=== PATIENT | female | born 1945 | race Caucasian/White ===

== ENCOUNTER 2025-07-22 16:35 | Outpatient (REF) | payer MEDICARE, SELFPAY ==
--- NOTE | ~2025-07-22 | CT_ITS ---
CLINICAL HISTORY: ABNORMAL CHEST CT CT chest without contrast Comparison: None provided Findings: There is mild coronary artery disease. The visualized thyroid and mediastinum are unremarkable. There is severe bullous emphysema in the upper lobes in particular. Scarring is seen at the lung apices. There is a 1.1 cm irregularly-shaped perifissural nodule in the left lower lobe best seen on image number 81 of series number 7. The upper abdomen is unremarkable. No acute fractures. IMPRESSION: 1. Irregularly-shaped perifissural nodule measuring 1.1 cm. Though this may represent an enlarged perifissural lymph node,neoplasm is not entirely excluded. Please correlate with PET imaging. 2. Severe bullous emphysema in the upper lobes. This document has been electronically signed by: Robert Serrano MD on 07/24/2025 12:35:01
--- OUTSIDE RECORDS SUMMARY | 2025-07-22 18:44 | XMS_ITS | Clinical Summary ---
Author Organization [employer] Address [address] [facility] [address] [place] [address] Care Team Providers Care Mining Manager Name Role Phone Unavailable Primary Care Provider Unavailabl e Immunizations Immunization Administration Dates Next Due Influenza injectable quadrivalent preservative f ree 08/31/2023 Influenza, IIV3, injectable 07/23/2018, 2 Pfizer Covid-19 Vaccine 12+ 08/31/2023 Social History Tobacco Use Types Packs/Day Years Used Date Smoking Tobacco: Never Assessed Comments Unknown Sex and Gender Information Value Date Recorded Sex Assigned at Female 08/31/2023 2:47 PM EDT Legal Sex Female 12:11 PM EDT Gender Identity Female 08/31/2023 2:47 PM EDT Sexual Orientation Straight 08/31/2023 2: 47 PM EDT Plan of Treatment Health Maintenance Due Date Last Done Comments Depression Screening 1945 Lipid Panel 1945 SDOH Screening 1945 Alcohol/Substance Use Screening 1957 Tobacco Screening 1957 Hepatitis C Screening 1963 DTaP/Tdap/Td Vaccines (1 - Tdap) 1964 Pneumococcal Vaccine: 50+ Years (1 of 1 - PCV) 1995 Zoster Vaccines (1 of 2) 1995 RSV Patients and Patients Aged 60 years or older (1 - 1-dose 75+ series) 2020 COVID-19 Vaccine (4 - 2024-2 6 season) 2025 08/31/2023, 02/24/2021, 02/03/2021 Influenza Vaccine (#1) 2025 , 07/23/2018, 08/22/2012 HIB Vaccines Aged Out No longer eligi ble based on patient's age to complete this topic HPV Vaccines Aged Out No longer eligi ble based on patient's age to complete this topic Hepatitis A Vaccines Aged Out No long er eligible based on patient's age to complete this topic Hepatitis B Vaccines Aged Out No long er eligible based on patient's age to complete this topic IPV Vaccines Aged Out No longer eligi ble based on patient's age to complete this topic Meningococcal B Vaccine Aged Out No l onger eligible based on patient's age to complete this topic Meningococcal Vaccine Aged Out No edd letty eligible based on patient's age to complete this topic RSV under 20 months Aged Out No longe r eligible based on patient's age to complete this topic Rotavirus Vaccines Aged Out No longer eligible based on patient's age to complete this topic Insurance [employer] PPO
== END 2025-07-22 16:36 | disposition home or self-care (01) ==
LOC: HO.CT 16:35
PROVIDERS: PCP Internal Medicine; Visit Provider Internal Medicine
DX: R93.89 Abnormal findings on diagnostic imaging of other specified body structures (principal); Z87.891 Personal history of nicotine dependence
CPT/HCPCS: 71250

== ENCOUNTER 2025-08-08 10:23 | Outpatient (AMB) | payer MEDICARE, SELFPAY ==
--- NOTE | 2025-08-08 10:27 | A.OFFVIS_ITS ---
Vital Signs 08/08/25 10:29 Height 5 ft 2.5 in Weight 88 lb 8 oz BMI 15.9 BP 110/64 Blood Pressure Location Rt brachial Position Sitting Pulse 89 Pulse Source Pulse Oximeter Pulse Oximetry (%) 96 Oxygen Delivery Method Room Air Intake Visit Reasons: Abnormal CT scan Allergies No Known Allergies Allergy (Verified 08/08/25 10:31) HPI HPI Abnormal CT scan: Details: Soledad is a pleasant 79-year-old female, former approximately 30 pack-year smoker, quit 15 years ago currently vaping with underlying Parkinson's, hypertension, osteoporosis and anxiety. She was referred by PCP after abnormal CT chest scan which revealed a 1.1 cm irregularly-shaped perifissural nodule in the left lower lobe. She reports being sent for chest CT for prior abnormal chest CT, however unclear where this was performed. She currently denies any respiratory symptoms or prior need for respiratory medications. She denies prior history of asthma/COPD. She denies any pertinent family history. She reports significant smoking history starting in late 50s to 60s continuing until 2009 where she switched to vaping. She continues to vape however states she is currently not vaping nicotine.The patient has a history of significant personal loss, including the of her and two sons, as well as sister and her youngest son currently has cancer, with all this feels she is not ready to quit vaping at this time. [facility] Social History (Updated 08/08/25 @ 10:32 by Amelia Solis CMA) Patient Tobacco Use Status: Former Tobacco user e-Cigarette/Vaping Use: Currently Using Review of Systems Const Denies chills, Denies excessive sweating, Denies fever(s), Denies headache(s) and Denies night sweats Eyes Denies dry eyes, Denies irritation and Denies itchy eyes ENT Reports Normal hearing present, Denies headache(s), Denies nasal congestion, Denies nasal discharge, Denies post nasal drip and Denies sore throat Card Denies chest pain, Denies chest pain at rest, Denies chest pain with activity, Denies claudication, Denies leg edema, Denies dyspnea, Denies dyspnea on exertion, Denies orthopnea and Denies paroxysmal nocturnal dyspnea Resp Denies chest congestion, Denies cough, Denies excessive phlegm production, Denies pain on inspiration, Denies pain with cough, Denies dyspnea, Denies dyspnea on exertion, Denies stridor and Denies wheezing Musc Denies myalgias Neuro Reports Normal hearing present and Denies headache(s) Endo Denies excessive sweating Aevry/Lymph Denies lymphadenopathy Aller/Immun Denies itchy eyes, Denies seasonal rhinorrhea and Denies wheezing Physical Exam Vital Signs: Last Vital Signs Pulse 89 08/08/25 10:29 BP 110/64 08/08/25 10:29 Pulse Ox 96 08/08/25 10:29 Oxygen Delivery Method Room Air 08/08/25 10:29 BMI result Body Mass Index 15.9 Const General: cooperative, comfortable, no acute distress, well developed and alert Nutritional Appearance: thin Orientation/consciousness: patient oriented x3 Limitations: ambulation with cane HEENT Head: Yes normal to inspection, Yes normocephalic and Yes atraumatic Ears: hearing grossly normal bilaterally and external ears normal Eyes General: appearance normal, both eyes and all related structures Eyelids: Yes eyelids normal Sclerae: sclerae normal EOM: EOMs intact bilaterally Neck Neck: Yes normal visual inspection and Yes no lymphadenopathy Lymphatic: no lymphadenopathy noted Chest Chest palpation & inspection: normal inspection of the chest Resp Effort & Inspection: normal respiratory effort, able to speak in complete sentences, no audible wheezes, no cough, no stridor, not tachypneic, no tripod positioning, no use of accessory muscles and prolonged expiratory phase Auscultation: diminished lung sounds Cardio Jugular venous distension: no JVD Rate: regular rate Rhythm: regular rhythm Skin Other: warm, dry General skin exam: no rashes or lesions noted Neuro General: patient oriented x3 Cranial nerves: Yes Normal hearing present Cognition (Neuro): normal cognition Extrem General: Yes normal to inspection, Yes capillary refill normal, Yes no clubbing, cyanosis or edema and Yes no pedal edema Psych Appearance: grossly normal and well kempt Speech and movement: Normal speech and movement present and Clear speech present Affect: normal affect Attitude: cooperative Thought process: Normal thought process present Thought content: Normal thought content present Insight: Good insight present (Psych) Judgement: Good judgement present (Psych) Results Reviewed Results Reviewed: [address] [address] [address] Scan Report Signed Patient: Soledad Bradley MR#: [id number] : 1945 Acct:[id number] Age/Sex: 79 / F ADM Date: 07/22/25 Loc: HO.CT Attending Dr: Susi Oliver DO Ordering Physician: Susi Florez DO Date of Service: 07/22/25 Procedure(s): CT chest wo IV con Accession Number(s): [id number] cc: Susi Florez DO~ Report Number: [id number]: Total DLP = 63.00 mGy-cm Reason for Exam: ABNORMAL CHEST CT CLINICAL HISTORY: ABNORMAL CHEST CT CT chest without contrast Comparison: None provided Findings: There is mild coronary artery disease. The visualized thyroid and mediastinum are unremarkable. There is severe bullous emphysema in the upper lobes in particular. Scarring is seen at the lung apices. There is a 1.1 cm irregularly-shaped perifissural nodule in the left lower lobe best seen on image number 81 of series number 7. The upper abdomen is unremarkable. No acute fractures. IMPRESSION: 1. Irregularly-shaped perifissural nodule measuring 1.1 cm. Though this may represent an enlarged perifissural lymph node,neoplasm is not entirely excluded. Please correlate with PET imaging. 2. Severe bullous emphysema in the upper lobes. This document has been electronically signed by: Robert Serrano MD on 07/24/2025 12:35:01 Dictated By: Robert Serrano MD Signed By: <Electronically signed by Robert Serrano MD in OV> 07/24/25 1236 DD/ 1235 TD/TT: 07/24/25 1235 Electrical Project Manager: Assessment & Plan Assessment & Plan (1) Pulmonary nodule: Code(s): R91.1 - Solitary pulmonary nodule Category: Medical (2) Emphysema of lung: Code(s): J43.9 - Emphysema, unspecified Category: Medical Plan Soledad presents for pulmonary evaluation after abnormal chest CT revealed a 1.1 cm irregularly-shaped perifissural nodule in the left lower lobe. She reportedly underwent CT to monitor pulmonary nodule however no imaging in the last 5 years through [facility]. She has had testing through [facility] however denies chest CT. Will reach out to [facility] to obtain any prior chest imaging. In the mean time, discussed the nature of pulmonary nodules including infectious, inflammatory and malignant etiologies. Will repeat in 3 months to assess stability. If there is progression of nodule, discussed the significant risk of biopsy given severity of emphysematous changes. Will send for PFT to assess severity of obstructive defect, likely with COPD given smoking history and significant emphysematous changes on chest CT. All questions were answered and patient is in agreement of plan. Will follow-up to review results or sooner if needed. Orders: Orders CT chest wo IV con 10 Weeks R91.1 - Solitary pulmonary nodule PFT pulmonary function test Today J43.9 - Emphysema, unspecified Coding Level of Care Code New Pt Level 4 (11499) Diagnoses Pulmonary nodule R91.1 Emphysema of lung J43.9
[2025-08-08 10:29] VITALS: BP 110/64; PULSE 89; O2SAT 96; BMI 15.9
== END 2025-08-08 11:10 | disposition home or self-care (01) ==
LOC: HO.HPSW 10:24
PROVIDERS: PCP Internal Medicine; Referring Provider Internal Medicine; Visit Provider Nurse Practitioner Family
DX: R91.1 Solitary pulmonary nodule (principal); J43.9 Emphysema, unspecified
CPT/HCPCS: 99204

== ENCOUNTER → 2025-08-08 10:23 | Outpatient (BNVA) | payer MEDICARE, SELFPAY | PROVIDERS: PCP Internal Medicine; Referring Provider Internal Medicine; Visit Provider Nurse Practitioner Family | DX: R91.1 Solitary pulmonary nodule (principal); J43.9 Emphysema, unspecified; Z87.891 Personal history of nicotine dependence | CPT/HCPCS: 99202 ==

== ENCOUNTER 2025-09-07 12:05 | Emergency (ER) | payer MEDICARE, SELFPAY ==
--- NOTE | ~2025-09-07 | CT_ITS ---
CLINICAL HISTORY: fall. fracture? Exam: Unenhanced CT chest with multiplanar reformats. Comparison: None. Findings: Lungs reveal diffuse significant centrilobular emphysematous disease. Biapical scarring is present. A poorly defined right upper lobe nodular density measuring 12 x 5 mm transverse and AP dimension (30; 38) is noted. A 1 cm left fissural nodule is noted (30; 79). No other definable nodules. No focal consolidation. Airways are patent. No pneumothorax. No mediastinal or hilar masses or adenopathy. No pleural or pericardial effusions. Images below the diaphragms reveal no acute abnormalities. Osseous structures reveal no acute fractures or traumatic malalignment. Impression: 1. No acute traumatic sequela to the chest. 2. Significant centrilobular emphysema. 3. Pulmonary and fissural nodular densities as described above. Based on size criteria, consider three-month follow-up chest CT, or comparison with prior imaging if available. This document has been electronically signed by: Raleigh Lopez MD on 09/07/2025 14:31:18
--- NOTE | ~2025-09-07 | XR_ITS ---
EXAMINATION: XR SHOULDER, RIGHT CLINICAL INFORMATION: fall COMPARISON: Fall TECHNIQUE: Four views of the right shoulder. FINDINGS: Study is assigned to de for dictation on 09/08/2025 at 8:07 AM. Bone mineralization appears slightly decreased. No visible acute fracture or dislocation. Mild acromioclavicular arthritis. Glenohumeral joint space appears relatively maintained. There are sclerotic foci in the proximal humeral metadiaphysis, extending over a length of approximately 7.4 cm craniocaudal, 2.6 cm transverse. Margins are slightly lobulated. No periosteal reaction. No cortical breakthrough. No lytic foci. No pathological fracture seen. Clavicle is intact. No abnormal soft tissue calcification. XR/XR shoulder RT min 2V IMPRESSION: *No radiographic evidence of acute fracture or dislocation. *Mild acromioclavicular arthritis * Lesion in the proximal humeral metadiaphysis measuring 7.4 cm craniocaudal. No lytic foci. No cortical breakthrough. No periosteal reaction or pathological fracture. Differential considerations include primary bone lesion, metastatic disease This could represent a chondroid lesion among other etiologies. Recommend correlation with prior imaging. Clinically correlate. Recommend further workup with bone scan, PET/CT as clinically indicated. In addition, recommend ongoing clinical and radiographic follow-up. [place] text message was sent to Armaan Pérez at 9:07 AM, September 08, 2025 Electronically signed by: Jose Ortez MD 09/08/2025 09:09 AM [facility] [place]
--- NOTE | ~2025-09-07 | CT_ITS ---
CLINICAL HISTORY: Fall Exam: Nonenhanced CT abdomen and pelvis with multiplanar reformats. Comparison: None. Findings: CT abdomen: Lung bases reveal centrilobular emphysematous changes. Liver is free of gross focal lesions and ductal dilatation. Gallbladder is absent. Spleen appears unremarkable. Pancreas and adrenal glands appear unremarkable. Kidneys appear unremarkable. No free intraperitoneal fluid or retroperitoneal masses or adenopathy. Abdominal aorta is normal caliber with moderate calcific athero sclerosis. Bowel loops reveal no abnormal wall thickening or distention. Colonic diverticulosis is present, without CT evidence of diverticulitis. The appendix appears unremarkable. CT pelvis: Uterus reveals small calcified fibroids. Urinary bladder is free of gross filling defects. No pelvic masses, fluid or adenopathy. Osseous structures reveal fractures of the anterior aspect of the superior and inferior pubic rami (35; 571 -607. No other definable fractures or traumatic malalignment. Diffuse lumbar degenerative changes are present. Mild central compression deformity at L4 (39; 52) appears remote, with no definable fracture lines or paravertebral stranding. Impression: 1. Fractures of the left superior and inferior pubic rami. 2. No other acute traumatic sequela to the abdomen or pelvis. This document has been electronically signed by: Raleigh Lopez MD on 09/07/2025 14:26:10
--- NOTE | ~2025-09-07 | XR_ITS ---
CLINICAL HISTORY: fall 2 views each hip with AP pelvis Comparison: Same-day CT pelvis Findings: Fracture of the left superior pubic ramus is re-identified. Fracture of the inferior pubic ramus seen on CT exam is not well delineated on this exam. No other fracture or dislocation. No significant hip arthritic change. Lower lumbar degenerative changes are present. No radiopaque foreign body. Impression: 1. Fracture of the left superior pubic ramus. Fracture of the left inferior pubic ramus seen on same day CT is not well delineated on this exam. No other fractures. This document has been electronically signed by: Raleigh Lopez MD on 09/07/2025 14:26:35
--- NOTE | ~2025-09-07 | CT_ITS ---
CLINICAL HISTORY: Fall CT head without contrast Comparison: None Findings: No intracranial mass, midline shift, hydrocephalus, or acute hemorrhage. No CT evidence of acute ischemia. Visualized paranasal sinuses and mastoid air cells normal. Orbits unremarkable. No skull fracture Impression: 1. No acute intracranial abnormalities. This document has been electronically signed by: Raleigh Lopez MD on 09/07/2025 14:21:27
--- NOTE | ~2025-09-07 | CT_ITS ---
CLINICAL HISTORY: Fall CT cervical spine without contrast Comparison: None Findings: Normal limited view of the intracranial contents. Soft tissues of the neck are normal. Lung apices reveal biapical scarring.. Normal vertebral body alignment. No fractures or dislocations. Diffuse cervical degenerative changes are present. 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 Impression: 1. No cervical vertebral fracture or traumatic malalignment. This document has been electronically signed by: Raleigh Lopez MD on 09/07/2025 14:26:47
[2025-09-07 12:15] VITALS: BP 158/76; PULSE 89; RESP 18; TEMP 36.6; O2SAT 98; BMI 16.1
--- NOTE | 2025-09-07 12:19 | ED.GENADULT ---
HPI - General Adult General Chief complaint: Fall Stated complaint: L Side Pain S/P Fall 2 Days Ago Time Seen by Provider: 09/07/25 13:15 Source: patient and family (Patient's son Abel) Mode of arrival: ambulatory Limitations: no limitations History of Present Illness ED Provider: HPI narrative: 79-year-old woman fell 3 days ago, since then has had very difficult time ambulating to the bathroom without assistance, her son states that she went from very functional to the early functional, she is complaining of left hip pain, right shoulder pain, no headaches no visual changes, not on blood thinners, patient has a history of Parkinson's. Patient states that she turned abruptly and this is when she fell on the cement steps. Related Data Home Medications ?Medication ?Instructions ?Recorded ?Confirmed amlodipine 5 mg tablet 5 mg PO DAILY 08/08/25 atorvastatin 20 mg tablet (Lipitor) 20 mg PO DAILY 08/08/25 cholecalciferol (vitamin D3) 25 25 mcg PO DAILY 08/08/25 mcg (1,000 unit) capsule rasagiline 1 mg tablet 1 mg PO DAILY 08/08/25 rotigotine 4 mg/24 hour 4 mg transdermal DAILY 08/08/25 transdermal 24 hour patch (Neupro) Previous Rx's ?Medication ?Instructions ?Recorded oxycodone 5 mg tablet 2.5 mg (1/2 x 5 mg) PO Q6H PRN 09/07/25 pain #7 tabs Allergies Allergy/AdvReac Type Severity Reaction Status Date / Time strawberry Allergy Unknown Verified 09/07/25 12:18 Review of Systems Constitutional: Constitutional: Reports as per [facility] Social History Social History (Updated 08/08/25 @ 10:32 by Amelia Solis [facility]) Patient Tobacco Use Status: Former Tobacco user Smoked in Last 30 Days: No e-Cigarette/Vaping Use: Currently Using Use of substances other than those prescribed or required for medical reasons: No Advance Directives: Yes Advance Directives Information Provided: No Advance Directives on File: No Do you have a plan to hurt others: No Plan Physical Exam ED Exam Exam: General: ?Elderly woman, has parkinsonian tremor ? ?no facial injury, pupils 2 mm reactive bilaterally, no blood in the airway ? Neck: Supple, no LAD ? ?CV: RRR, no obvious murmurs appreciated ? ?Resp: ?No wheezing rales rhonchi no stridor moving air well ? Abd: ?Holding her hip in internal rotation, tender range of motion, pelvis is stable, distal pulses intact ? Skin: Warm, dry, intact, no bruising ? ?Neuro: ?Alert and oriented x3, cranial nerves 2-12 intact Vital Signs: Vital Signs - 24 hr 09/07/25 12:15 09/07/25 13:50 09/07/25 13:58 Temperature 98 F 98.1 F Pulse Rate 89 89 Respiratory Rate 18 18 Blood Pressure 158/76 H 153/75 H Pulse Oximetry 98 87 L 94 Oxygen Delivery Method Room Air Room Air Nasal Cannula Oxygen Flow Rate 2 09/07/25 15:31 09/07/25 15:31 Temperature 98.1 F Pulse Rate 89 Respiratory Rate 18 Blood Pressure 153/75 H Pulse Oximetry 92 92 Oxygen Delivery Method Room Air Room Air Oxygen Flow Rate BMI result Body Mass Index 16.1 Course Course Course Narrative: RME: 79 year female history of Parkinson's disease presents to ED for fall 2 days ago. Patient states she has Parkinson's was walking she tripped over her feet and fell onto her right side. Patient is complaining of left hip and right shoulder pain. Patient has difficulty walking since fall. Patient denies being on any blood thinners. Imaging ordered. Reevaluation(s) Reevaluation #1: OSCAR Laura 09/08/25 0324 I received a call from Radiology regarding patient's shoulder x-ray from yesterday. Dr. Ortez was asked to review xray - informs me of: Lesion in the proximal humeral metadiaphysis measuring 7.4 cm craniocaudal. No lytic foci. No cortical breakthrough. No periosteal reaction or pathological fracture. Differential considerations include primary bone lesion, metastatic disease This could represent a chondroid lesion among other etiologies. Recommend correlation with prior imaging. Clinically correlate. Recommend further workup with bone scan, PET/CT as clinically indicated. In addition, recommend ongoing clinical and radiographic follow-up. I called patient at her home phone number [phone], informed her of these results. She was unaware of any bone lesion. I informed her that this needs to be followed up outpatient as cancer cannot be ruled out. She verbalizes understanding and states that she will be contacting her PCP (Vielka Loyd) today for follow up. Her PCP has also been sent visit note/imaging. informed her to return to the ED for any new/ or worsening symptoms. Medications Administered Discontinued Medications Generic Name Dose Route Start Last Admin Trade Name Donna PRN Reason Stop Dose Admin Acetaminophen 1,000 mg in 100 mls @ 400 mls/hr 09/07/25 13:54 09/07/25 14:58 Ofirmev IV 09/07/25 14:08 Infused ONCE ONE Infusion Medical Decision Making Medical Decision Making [facility] Narrative: 1:58 PM 09/07/2025 (Dr. Parvez Barraza): Patient presenting after a fall, I spoke to her son regarding patient is ambulatory status and discussed whether patient has a fracture and can be discharged or if she does not have a fracture given Parkinson's and pain, she states states has inability to take any narcotic pain medications I will go ahead and give IV Tylenol, it sounds like there is another son who is at home to help with mom's care 247 and they would not be interested in rehab if there was no fracture, we will obtain imaging of the head and neck as well as CT pelvis, the x-rays bilateral obvious fracture however I am still concerned for occult subcapital fracture that does not able to be seen on x-rays we will obtain imaging for that, for now we will hold off any blood work urinalysis, this was a nonsyncopal fall. 2:37 PM 09/07/2025 (Dr. Parvez Barraza): Patient has inferior and superior left-sided pubic rami fracture, reached out to ortho to see if they recommend follow up, this will be weight-bearing as tolerated with a walker typically we will discuss with the patient 2:39 PM 09/07/2025 (Dr. Parvez Barraza): according to [facility] protocol is NWB x 3 months with ortho follow up 3:07 PM 09/07/2025 (Dr. Parvez Barraza): I spoke to patient and her son regarding above recommendations, patient states she would like to go home, she will be able to use both a walker and her crutches to stay nonweightbearing and to follow up with Orthopedics, she also stated she will take a few pain medications for home, they were not interested in rehab. Differential Diagnosis Differential Diagnoses: The differential diagnosis associated with the presentation includes (Head injury, neck injury, syncope, shoulder injury dislocation) Admission/Observation Consideration of admission/observation: Escalation of care including admission/observation considered Consult Healthcare Provider Management of the patient was discussed with: [employer]iv[employer] Trader (Orthopaedic service) Independent Interpretation I performed an independent interpretation of an: CT Scan (1. Fracture of the left superior pubic ramus. Fracture of the left inferior pubic ramus seen on same day CT is not well delineated on this exam. No other fractures.) Radiology Impression Discussion of test interpretation with radiology: I have reviewed the radiologist's reading. Prescription Management I considered prescription management with: Pain Medication Discharge Plan Discharge Clinical Impression: Fracture of inferior pubic ramus, Fracture of superior pubic ramus Patient Disposition: Home, Self-Care Instructions: Pelvic Fracture (ED) Additional Instructions: I would like you to take Tylenol 975 mg every 6 hours around the clock for the next few days to help with the pain, oxycodone you can cut in half and use half a pill every 6 hours needed for pain, stay well hydrated, as discussed you have pelvic fractures on the left side, Orthopedic Surgeons we will need to see you in the next few weeks he can call make an a follow up appointment in the next 2-3 weeks, in the meantime their recommendation is for you not to bear weight on the left side, whether use crutches or walker please adhere to this recommendation. Should you develop any issues with frequent falls or safety or any other concerns do not hesitate to come back to the ER for evaluation. Prescriptions: New oxycodone 5 mg tablet 2.5 mg PO Q6H PRN (Reason: pain) Qty: 7 0RF Rx Instructions: Partial Fill upon patient request. No Action atorvastatin [Lipitor] 20 mg tablet 20 mg PO DAILY amlodipine 5 mg tablet 5 mg PO DAILY cholecalciferol (vitamin D3) 25 mcg (1,000 unit) capsule 25 mcg PO DAILY rasagiline 1 mg tablet 1 mg PO DAILY Neupro 4 mg/24 hour patch 24 hour 4 mg transdermal DAILY Referrals: [facility] [Provider Group, Orthopedics] - 2 weeks Clinical Impression: Fracture of inferior pubic ramus; Fracture of superior pubic ramus Susi Florez DO [Primary Care Provider, Osteopathic Medicine] - 2 weeks Interventions: ED Discharge Assessment Last Done: 09/07/25 15:31 Discharge Date/Time: 09/07/25 15:33 Print Language: Kosovan
--- OUTSIDE RECORDS SUMMARY | 2025-09-07 13:21 | XMS_ITS | Clinical Summary ---
Author Organization [employer] Address [address] [facility] [address] [facility] [address] [place] [address] Care Team Providers Care Front Office Representative Name Role Phone Unavailable Primary Care Provider [...]
[2025-09-07 13:50] VITALS: O2SAT 87
[2025-09-07 13:58] VITALS: BP 153/75; PULSE 89; RESP 18; TEMP 36.7; O2SAT 94
--- NOTE | 2025-09-07 14:11 | PC.NURSE ---
Pt desat on RA to mid 80s. Placed on 2L O2 with good effect, maintaining O2 sat >92%. No respiratory distress noted, respirations even and unlabored. Pt states does not wear O2 at home. 22g IV placed Left wrist- IV Tylenol infusing per DEC. Call stevenson within reach, all needs met at this time.
[2025-09-07 15:31] VITALS: BP 153/75; PULSE 89; RESP 18; TEMP 36.7; O2SAT 92
--- NOTE | 2025-09-07 15:33 | PC.NURSE ---
Pt trialed off O2- maintained O2 sat >92% on RA. Per LE stokes to d/c pt home
== END 2025-09-07 15:33 | disposition home or self-care (01) ==
PROVIDERS: Emergency Provider Emergency Medicine; PCP Internal Medicine
DX: S32.512A Fracture of superior rim of left pubis, initial encounter for closed fracture (principal); S32.592A Other specified fracture of left pubis, initial encounter for closed fracture; M54.2 Cervicalgia; M25.552 Pain in left hip; M25.551 Pain in right hip; R51.9 Headache, unspecified; X58.XXXA Exposure to other specified factors, initial encounter; Y93.9 Activity, unspecified; Y92.9 Unspecified place or not applicable; Y99.8 Other external cause status; Z79.899 Other long term (current) drug therapy
CPT/HCPCS: 70450; 71250; 72125; 73030; 73521; 74176; 96365; 99284; 99285; J0131

== ENCOUNTER → 2025-09-07 12:18 | Outpatient (BNV) | payer MEDICARE, SELFPAY | PROVIDERS: Emergency Provider Emergency Medicine; PCP Internal Medicine; Visit Provider Radiology Diagnostic Radiology | DX: M25.552 Pain in left hip (principal); R26.2 Difficulty in walking, not elsewhere classified; Z91.81 History of falling | CPT/HCPCS: 70450; 71250; 72125; 73030; 73521; 74176 ==

== ENCOUNTER 2025-09-08 17:33 | Emergency (ER) | payer MEDICARE, OTHER, SELFPAY ==
--- NOTE | ~2025-09-08 | CT_ITS ---
CLINICAL HISTORY: hypoxia CT angiography chest with contrast. 3D Postprocessing. Comparison: CT/REG/SR - CT CHEST WO IV CON - 09/07/25 13:20 EST Findings: The heart is normal size. RV/LV ratio is normal. The thoracic aorta is normal caliber. No acute pulmonary embolus. The visualized thyroid and mediastinum are unremarkable. Severe centrilobular emphysema with apical bullous change. Again seen is a 12 x 5 mm right upper lobe nodular density, series 7, image 36 that appears to be associated with an area of scarring. Group of fissural densities adjacent to the superior segment of the left lower lobe, along the major fissure again seen. These are platelike. The upper abdomen is unremarkable. The bones are intact. No lytic or blastic bone lesions. IMPRESSION: 1. No pulmonary embolus. 2. Severe centrilobular emphysema with apical bullous changes. 3. Again seen nodule in the right upper lobe and fissural densities in the left lung, attention on three-month follow-up imaging recommended. This document has been electronically signed by: Jose Flores MD on 09/11/2025 19:10:16
[2025-09-08 17:50] VITALS: BP 157/90; PULSE 88; RESP 16; TEMP 36.6; O2SAT 89; BMI 16.1
--- NOTE | 2025-09-08 17:50 | ED.GENADULT ---
HPI - General Adult General Chief complaint: Extremity Injury, Lower Stated complaint: fractured pelvis, left here yesterday Time Seen by Provider: 09/08/25 19:55 Source: patient Mode of arrival: wheelchair Limitations: no limitations History of Present Illness ED Provider: Dr. Madie Moya HPI narrative: Patient comes to the emergency room via private vehicle, patient was read by her son. Patient was in here yesterday for a fall. She was diagnosed with an acute fracture of the left superior pubic ramus. Patient states that yesterday although she was in pain, she thought she could be okay at home, states that she has a younger son that could take care of her. However, patient states that her son was unable to provide enough help although he tried. Patient states that she is unable to get up by herself. Related Data Home Medications ?Medication ?Instructions ?Recorded ?Confirmed amlodipine 5 mg tablet 5 mg PO DAILY 08/08/25 09/09/25 atorvastatin 20 mg tablet (Lipitor) 20 mg PO DAILY 08/08/25 09/09/25 cholecalciferol (vitamin D3) 25 25 mcg PO DAILY 08/08/25 09/09/25 mcg (1,000 unit) capsule rasagiline 1 mg tablet 1 mg PO DAILY 08/08/25 09/09/25 amantadine HCl 100 mg capsule 100 mg PO DAILY 09/09/25 09/09/25 rotigotine 3 mg/24 hour 1 patch topical DAILY 09/09/25 09/09/25 transdermal 24 hour patch (Neupro) Previous Rx's ?Medication ?Instructions ?Recorded oxycodone 5 mg tablet 2.5 mg (1/2 x 5 mg) PO Q6H PRN 09/07/25 pain #7 tabs cefuroxime axetil 250 mg tablet 250 mg PO BID #10 tabs 09/12/25 Allergies Allergy/AdvReac Type Severity Reaction Status Date / Time strawberry Allergy Unknown Verified 09/08/25 17:51 Review of Systems Review of Systems: Constitutional : No Weight loss, No Fever, No Chills, No Night Sweats, No Fatigue, No Malaise ENT/Mouth : No Hearing loss, No Ear Pain, No Nasal Congestion, No Sinus Pain, No Hoarseness, No sore throat, No Rhinorrhea, No Swallowing Difficulty Eyes: No Eye Pain, No Swelling, No Redness, No Foreign Body, No Discharge, No Vision Changes Cardiovascular : No Chest Pain, No SOB, No Dyspnea on Exertion, No Orthopnea, No Edema, No Palpitations Respiratory : No Cough, No Sputum, No Wheezing, No Smoke Exposure, No Dyspnea Gastrointestinal : No Nausea, No Vomiting, No Diarrhea, No Constipation, No abdominal Pain, No Hematochezia, No Melena Genitourinary : no irregular bleeding, No Dysuria, No Urinary Frequency, No Hematuria, No Urinary Incontinence, No Urgency, No Flank Pain, No Urinary Flow Changes, No Hesitancy Musculoskeletal : Complaining of left hip pain, No Myalgias, No Joint Swelling Skin : No Skin Lesions, No rash Neuro : No Weakness, No Numbness, No Paresthesias, No Loss of Consciousness, No Dizziness, No Headache Psych : No Anxiety/Panic, No Depression, No SI/HI/AH/VH, No Social Issues, Heme/Lymph: No Bruising, No Bleeding,No Lymphadenopathy Endocrine : No Polyuria, No Polydipsia, No Temperature Intolerance [facility] Past Medical History Medical History (Updated 09/12/25 @ 12:57 by Caryn Gordon PA-C) Hypertension Pulmonary nodule Emphysema of lung Social History Social History (Updated 08/08/25 @ 10:32 by Amelia Solis CMA) Patient Tobacco Use Status: Former Tobacco user e-Cigarette/Vaping Use: Currently Using Advance Directives Date on File: 09/09/25 Physical Exam ED Exam Exam: Appearance: Alert. Oriented X3. No acute distress. Eyes: Pupils equal, round and reactive to light. ENT: Pharynx normal. Neck: Normal inspection. Neck supple. No lymph nodes noted. No crepitus CVS: Normal heart rate and rhythm. Pulses normal. Normal S1 and S2 Respiratory: No respiratory distress. Breath sounds normal. No Wheezing. No rales Abdomen: Soft and nontender. No rigidity. No distention. Skin: Skin warm and dry. Normal skin color. Normal skin turgor. Extremities: No lower extremity edema. No Lacerations. No Rash, no obvious ecchymosis or hematomas. Patient is unable to flex or extend the left side of the hip due to pain. Neuro: Oriented X 3. No motor deficit. No sensory deficit. Moving all extremities. No slurred speech. CN 2 through 12 grossly intact Psych: calm, cooperative, normal affect Vital Signs: Vital Signs - 24 hr 09/11/25 13:02 09/11/25 14:00 09/11/25 17:33 Temperature 99.6 F Pulse Rate 76 Respiratory Rate 20 Blood Pressure 97/53 L 135/68 Pulse Oximetry 95 98 Oxygen Delivery Method Nasal Cannula Nasal Cannula Oxygen Flow Rate 2 2 09/11/25 19:59 09/11/25 20:24 09/12/25 00:26 Temperature 98.1 F Pulse Rate 76 Respiratory Rate 20 16 Blood Pressure 134/56 L Pulse Oximetry 95 91 L 88 L Oxygen Delivery Method Nasal Cannula Room Air Room Air Oxygen Flow Rate 1 09/12/25 05:08 Temperature 98.2 F Pulse Rate 79 Respiratory Rate 18 Blood Pressure 150/68 H Pulse Oximetry 92 Oxygen Delivery Method Room Air Oxygen Flow Rate BMI result Body Mass Index 16.1 Course Course Course Narrative: Rapid medical examination performed in triage by Opal Beth PA-C: Patient is a 79 year old assigned female at presenting to the emergency department with left pubic fractures. Patient states that she was seen yesterday after falling and was told she had 2 left sided pelvic fractures. Patient states that she thought she could make it at home but the pain is too severe. Detailed physical exam and review of systems are deferred to the chief revenue officer. Patient placed back in the waiting room pending room availability. Reevaluation(s) Reevaluation #1: Time: 08:50 Date: 09/09/25 Provider: OSCAR Levy Patient in physician observation for case management needs. No acute events reported overnight.? No current issues or complaints. VS stable.Pending PT/CM disposition, will continue to monitor Time: 07:34 Date: 09/10/25 Provider: OSCAR Gr Patient in physician observation for case management needs. No acute events reported overnight.?VS stable. Physical therapy evaluated patient and recommended short-term rehab. Patient is pending case management placement. Will continue to monitor. 1004 am 09/10/2025 Provider: OSCAR Monk, Code Status UTD. Molst filled out with patient. 1439: 09/10/25 Provider: OSCAR Monk: CM plans for patient to go to [facility]. Care team requesting increase in her pain medicationsor one time higher dose pain med for tomorrow prior eval tomorrow to better assess her physical capabilities. Will update PRN orders for now. Held 5mg of oxycodone for two days, replaced with 7.5mg same prn schedule Time: 08:12 Date: 09/11/25 Provider: OSCAR Gr Patient in physician observation for case management needs. No acute events reported overnight.? No current issues or complaints. O2 sat soft. Patient is pending PT re-evaluation today secondary to too much pain to participate. Will continue to monitor. > Patient notably hypoxic on room air 86-88% at rest. Labs and imaging reviewed. Plan to obtain CTA for further eval. Currently refusing to wear O2. 5:48 PM 09/11/2025 (Laura Aguilar PA-C): patient now agreeable to wear 2 L nasal cannula. Satting 98% on NC. CTA still pending. We will continue to monitor. ED care transferred to OSCAR Ellis pending CTA and dispo per results Reevaluation #2: Patient received in sign-out at change of shift pending CT angiography due to an episode of hypoxia this afternoon. Her CT angiography does not show any evidence of pulmonary embolism, infiltrate or pleural effusion. CT angiography shows severe emphysema which the patient has likely had for long time. She reports an approximate 40 pack year history of smoking. When I evaluate the patient at bedside, she is not wheezy, she denies any shortness of breath. I had her oxygen turned off and she was 94 percent while sitting up. At rest she drops to about 90 or 89 percent. I suspect this is somewhat chronic for her given that she is well-appearing. She is able to maintain entire conversation while her oxygen saturation is this low. Some degree of hypoxia due to oxycodone use as well. I do not feel that she requires admission at this time. Plan to continue observation Time: 20:16 Reevaluation #3: Time: 08:39 Date: 09/12/25 Provider: Caryn Gordon PA-C Patient in physician observation for case management needs. ON notes rev'd as above. Patient with atelectasis and emphysema. Will order incentive spirometer for her and to go home with. Plan to dispo home today with CAYETANO RAMOS on board. Will continue to monitor. Time: 12:46 Date: 11/14/25 Provider: Caryn Gordon PA-C Physician observation ended at 1245. Patient has been cleared for discharge by the CARE team. Will follow up as an outpatient. Going home with [facility] and [facility]. UTI tx continued- mixed rosalee on culture. Son is bring patient home. Medications Administered Generic Name Dose Route Start Last Admin Trade Name Freq PRN Reason Stop Dose Admin Amlodipine Besylate 5 mg 09/09/25 09:00 09/12/25 08:25 Amlodipine Besylate 5 Mg Tablet PO 5 mg DAILY JACKY Administration Protocol Atorvastatin Calcium 20 mg 09/09/25 09:00 09/12/25 08:25 Atorvastatin Calcium 20 Mg Tablet PO 20 mg DAILY JACKY Administration Cefuroxime Axetil 250 mg 09/09/25 00:15 09/12/25 08:25 Cefuroxime Axetil 250 Mg Tablet PO 250 mg BID JACKY Administration Magnesium Hydroxide 30 ml 09/09/25 09:00 09/12/25 08:24 Milk Of Magnesia 30 Ml Oral.Susp PO Not Given BID JACKY Pt Own (Rasagiline 1 1 mg 09/09/25 10:15 09/12/25 08:23 Mg Tablet) PO 1 mg DAILY JACKY Administration Pt Own (Rotigotine [ 1 patch 09/09/25 10:00 09/12/25 08:23 Neupro] 3 Mg/24 Hour TOPICAL 1 patch Patch 24 Hour) DAILY JACKY Administration Oxycodone HCl 5 mg 09/09/25 03:15 09/10/25 10:49 Oxycodone Hcl Immed Release 5 Mg Tablet PO 5 mg Q6H PRN Administration Pain, Severe (Pain Scale 7-10) Oxycodone HCl 7.5 mg 09/10/25 18:09 09/11/25 20:28 Oxycodone Hcl Immed Release 5 Mg Tablet PO 7.5 mg Q6H PRN Administration severe pain Vitamin D 25 mcg 09/09/25 09:00 09/12/25 08:25 Cholecalciferol (Vitamin D3) 25 Mcg Tablet PO 25 mcg DAILY JACKY Administration Discontinued Medications Generic Name Dose Route Start Last Admin Trade Name Freq PRN Reason Stop Dose Admin Sodium Chloride 500 mls @ 999 mls/hr 09/11/25 15:30 09/11/25 17:06 Ns IV 09/11/25 16:00 Infused .Q31M JACKY Infusion Iohexol 100 ml 09/11/25 18:32 09/11/25 18:33 Iohexol 350 Mg/Ml 100 Ml Infus..Btl IV 09/11/25 18:33 65 ml ONCE ONE Administration Medical Decision Making Medical Decision Making [facility] Narrative: We will obtain basic lab work and urinalysis. Case management consult has been placed. Patient is agreeable to work with physical therapy tomorrow and case management. Interpretation of labs: No significant abnormality in patient's hematology and chemistry. Patient's urinalysis shows moderate amount of leukocyte esterase, WBCs, and bacteria. Borderline UTI positive. However, given that the patient recently had a fall, we will go ahead and treat as a UTI. First dose of cefuroxime given in the ED. Differential Diagnosis Differential Diagnoses: The differential diagnosis associated with the presentation includes (UTI, pubic ramus fracture, hip dislocation, hip fracture, deconditioning) Admission/Observation Consideration of admission/observation: Escalation of care including admission/observation considered (Patient is in the physician observation, physical therapy and case management consult is pending to determine patient's disposition) Lab Data [facility] Lab Attestation statement: I reviewed the patient's lab results. 09/08/25 22:58 09/08/25 22:58 Labs: Lab Results 09/08/25 Range/Units 22:58 WBC 9.9 (4.8-10.8) X10*3/uL RBC 4.31 (4.20-5.50) X10*6/uL Hgb 13.0 (12.0-16.0) g/dl Hct 41.3 (37.0-47.0) % MCV 95.8 (80.0-98.0) fL MCH 30.2 (27.0-33.0) pg MCHC 31.5 (31.0-35.0) g/dl RDW 13.1 (11.0-16.0) % Plt Count 267 (160-400) X10*3/uL MPV 9.6 (9.4-12.3) fL Immature Gran % (Auto) 0.4 (0.0-0.4) % Neut % (Auto) 64.0 (45-73) % Lymph % (Auto) 18.7 L (20-40) % [place] % (Auto) 12.0 H (2-11) % Eos % (Auto) 4.4 H (0-4) % Baso % (Auto) 0.5 (0-2) % Lymph # (Auto) 1.9 (1.2-4.9) X10*3/uL [place] # (Auto) 1.2 (0.1-1.2) X10*3/uL Eos # (Auto) 0.4 (0.0-0.4) X10*3/uL Baso # (Auto) 0.1 (0.0-0.2) X10*3/uL Abs Immat Gran (auto) 0.04 H (0.00-0.03) X10*3/uL Absolute Neuts (auto) 6.3 (2.0-8.3) x10*3/uL Absolute Nucleated RBC 0.000 (0.0-0.012) X10*3/uL Nucleated RBC % (auto) 0.0 (0.0-0.2) /100WBC Sodium 142 (135-145) mmol/L Potassium 3.9 (3.3-5.1) mmol/L Chloride 105 (96-108) mmol/L Carbon Dioxide 28 (22-29) mmol/L Anion Gap 13 (12-20) BUN 15 (9-16) mg/dL Creatinine 0.86 (0.5-1.4) mg/dL Estim Creat Clear Calc 34.5 Estimated GFR > 60 Random Glucose 134 H (60-115) mg/dL Calcium 8.9 (8.4-10.2) mg/dL Total Bilirubin 1.1 H (0.0-1.0) mg/dL Direct Bilirubin 0.4 (0.0-0.5) mg/dL AST 30 (5-31) U/L ALT 11 (0-31) U/L Alkaline Phosphatase 84 (39-117) U/L Total Protein 6.1 L (6.5-8.0) g/dL Albumin 3.2 L (3.5-5.0) g/dL Urine Color Yellow Urine Appearance Cloudy Urine pH 6.5 (5.0-9.0) Ur Specific [place] 1.010 (1.005-1.025) Urine Protein Negative (Neg-Trace) mg/dL Urine Glucose (UA) Negative (Negative) mg/dL Urine Ketones Negative (Negative) mg/dL Urine Blood Negative (Negative) Urine Nitrite Negative (Negative) Ur Leukocyte Esterase Moderate (2+) H (Negative) Urine RBC 0-2 (0-2) /HPF Urine WBC 6-10 (0-5) /HPF Ur Squamous Epith Cells 6-10 (0-2) /HPF Urine Bacteria 4+ (None Seen) Hyaline Casts 0-2 (0-2) /LPF Independent Interpretation I performed an independent interpretation of an: Plain X-Ray External Record Review I reviewed patient's radiology report from yesterday. Patient has a left superior pubic ramus fracture. Head CT and cervical spine CT did not show any acute abnormality Critical Care Time Critical Care Time Critical Care Time: Yes Total Critical Care Time: 35 Attestation: I have personally provided critical care time. Time includes review of lab data, radiology results, discussion with consultants, and monitoring for potential decompensation. Intervention performed as documented. Discharge Plan Discharge Clinical Impression: Acute UTI Fracture of pubic ramus Qualifiers: Encounter type: initial encounter Fracture type: closed Laterality: left Qualified Code(s): S32.592A - Other specified fracture of left pubis, initial encounter for closed fracture Patient Disposition: Home, Self-Care Instructions: Pelvic Fracture (ED) Additional Instructions: You were seen in the emergency department following a mechanical fall at home. You had imaging done that showed a pubic rami fracture. Impression: 1. Fracture of the left superior pubic ramus. Fracture of the left inferior pubic ramus seen on same day CT is not well delineated on this exam. No other fractures. Please use your walker at home to ambulate (walk). You have visiting nursing services in place. You were diagnosed with a urinary tract infection. COntinue to take antibiotic twice a day for the next 5 days. Please use your incentive spirometer due to your underlying emphysema. Instructions for Using an Incentive Spirometer in Emphysema and Dependent Atelectasis Preparation Sit upright in a chair or in bed with the head of the bed elevated. Hold the incentive spirometer upright. Breathing Technique Exhale normally. Place the mouthpiece in your mouth, sealing your lips tightly around it. Slowly inhale through the mouthpiece, aiming to raise the indicator to your target volume (initial goal: ~1,200 mL, adjust as tolerated). Continue to inhale as deeply as possible, then hold your breath for about 7?8 seconds. Remove the mouthpiece and exhale slowly. Repetition Repeat this process for 10 breaths per session, every hour while awake. Try to increase your target volume gradually each day, as able. Additional Recommendations Perform coughing and deep breathing exercises after each session to help mobilize secretions. Practice oral hygiene and get out of bed frequently, as tolerated, to further reduce pulmonary complications. If you experience dizziness, shortness of breath, or discomfort, stop and rest before resuming. Adherence Consistent use is essential for benefit. Reminders and education may improve adherence and outcomes. Rationale: Incentive spirometry encourages deep breathing, increases lung volume, and helps re-expand collapsed alveoli, which is particularly important in emphysema and dependent atelectasis. Regular use may improve oxygenation and reduce the risk of further pulmonary complications. For any new or worsening concerns, please return to the emergency department. Prescriptions: New cefuroxime axetil 250 mg tablet 250 mg PO BID Qty: 10 0RF No Action oxycodone 5 mg tablet 2.5 mg PO Q6H PRN (Reason: pain) Qty: 7 0RF Rx Instructions: Partial Fill upon patient request. amantadine HCl 100 mg capsule 100 mg PO DAILY Neupro 3 mg/24 hour patch 24 hour 1 patch topical DAILY atorvastatin [Lipitor] 20 mg tablet 20 mg PO DAILY amlodipine 5 mg tablet 5 mg PO DAILY cholecalciferol (vitamin D3) 25 mcg (1,000 unit) capsule 25 mcg PO DAILY rasagiline 1 mg tablet 1 mg PO DAILY Referrals: [facility] [Provider Group] Clinical Impression: Fracture of pubic ramus [facility] [Outside] Referral Note: [facility] will call to arrange a visit. [facility] [Outside] Referral Note: Now called [facility] . Will reach out to Stuart about any services that patient will qualify for. Print Language: Cuban
--- NOTE | 2025-09-08 19:56 | PC.NURSE ---
pt reports feeling she now needs services for rehab as her son who lives with her s unable t help her while her shoulder heals.
[2025-09-08 19:57] VITALS: BP 148/66; PULSE 78; RESP 18; TEMP 36.5; O2SAT 94
--- NOTE | 2025-09-08 20:28 | MHC.EDTECH ---
Assisted pt to use bedpan. Pt unable to reposition at this time due to pain. RN aware
--- OUTSIDE RECORDS SUMMARY | 2025-09-08 20:36 | XMS_ITS | Clinical Summary ---
Author Organization [employer] Address [address] [place] [address] Care Team Providers Care Engine Lathe Operator Name Role Phone Unavailable Primary Care Provider [...]
--- NOTE | 2025-09-08 22:17 | PC.NURSE ---
verbal report given to Caleb ECHEVARRIA in overflow.
--- NOTE | 2025-09-08 22:49 | MHC.CM.ED ---
CM met with patient at the request of Dr. Moya. Pt lives with her son. They rent a house. She has 2 walkers and 2 canes at home. She has no services. She is very independent. Attends the [employer] [facility] for activities and lunches with her sister in law. HCP is not on file. She tells CM it's a [facility]. CM will call in the morning. HCP/son Jamaal Davidson ([phone]). Patient was seen in the ED yesterday. Has L superior and inferior pubic rami fx. Per ortho: non-weight bearing x3 months. Pt opted to go home yesterday, declining PT and STR. Pt returned today due to pain. Pt now agreeable to PT in the morning and STR. Local referrals will be made. Requesting [facility] as first choice. PCP, address and insurance verified.
[2025-09-08 23:03] LABS: MANUAL DIFF FLAG NO
[2025-09-08 23:07] LABS: Hematocrit 41.3 % (37.0-47.0); Hemoglobin 13.0 g/dl (12.0-16.0); Imm Gran Abs Auto 0.04 X10*3/uL (0.00-0.03); Imm Gran Pct Auto 0.4 % (0.0-0.4); Lymphocytes Absolute Auto 1.9 X10*3/uL (1.2-4.9); Mean Corpuscular HGB Conc 31.5 g/dl (31.0-35.0); Mean Corpuscular Hemoglobin 30.2 pg (27.0-33.0); Mean Corpuscular Volume 95.8 fL (80.0-98.0); NRBC Abs Auto 0.000 X10*3/uL (0.0-0.012); NRBC Pct Auto 0.0 /100WBC (0.0-0.2); Platelet Count 267 X10*3/uL (160-400); Red Blood Count 4.31 X10*6/uL (4.20-5.50); White Blood Count 9.9 X10*3/uL (4.8-10.8)
[2025-09-08 23:08] LABS: Appearance Urine Cloudy; Glucose Urine UA Negative (Negative); PH 6.5 (5.0-9.0); Specific Gravity - Urine 1.010 (1.005-1.025); UMIC TRIGGER UACC YES
[2025-09-08 23:14] VITALS: BP 139/67; PULSE 79; RESP 16; TEMP 36.9; O2SAT 97
[2025-09-08 23:18] LABS: Alanine Aminotransferase 11 U/L (0-31); Albumin Level 3.2 g/dL (3.5-5.0); Alkaline Phosphatase 84 U/L (39-117); Anion Gap 13 (12-20); Aspartate Amino Transferase 30 U/L (5-31); Blood Urea Nitrogen 15 mg/dL (9-16); Calcium 8.9 mg/dL (8.4-10.2); Carbon Dioxide 28 mmol/L (22-29); Chloride 105 mmol/L (96-108); Creatinine Clr Calc Pharmacy 34.5; Estimated Glomerular Filt Rate > 60; Potassium 3.9 mmol/L (3.3-5.1); Sodium 142 mmol/L (135-145); Total Protein 6.1 g/dL (6.5-8.0)
--- NOTE | 2025-09-08 23:45 | MHC.EDTECH ---
Assisted patient with purewick placement. PT tolerated well.
[2025-09-09] MEDS: oxyCODONE HCl Immed Release 5 MG TABLET PO ×2 (09:21→16:41)
[2025-09-09] MEDS: Milk of Magnesia 30 ML ORAL.SUSP PO (09:21)
--- NOTE | 2025-09-09 09:44 | MHC.CM.ED ---
Addendum entered by Susan Madsen 09/09/25 11:35: Just received notification that Medicare is prime. [employer] is secondary. Will send referral to acute rehab. [facility] is 1st choice. Original Note: Patient remains in ER overflow. Physical therapy eval is pending. Anticipate STR will be recommended. [facility] is not contracted with patient's insurance. Multiple bed offers and facilities still reviewing discussed with patient. Choices: 1) [facility] 2) [facility]. [facility] does not have a HCP on file. Patient states it was over 15 years ago. New HCP completed, signed and witnessed. Son, Stuart 1st agent. Stuart's aunt, Scarlet listed as 2nd. Patient not comfortable providing Scarlet's telephone number at this time and states Stuart can provide it if needed. Continue to monitor for d/c needs.
--- NOTE | 2025-09-09 09:46 | PHA.MEDREC ---
Pharmacy Consult ? Medication Reconciliation Pharmacy has reviewed the medication reconciliation done by nursing staff and also spoke to patient to confirm medication list. Per patient, she is still taking Neupro 3 mg (still has 6 patches left) and will change to 4 mg once done with 3 mg. Last dose of medication was on Monday09/07/25.
[2025-09-09 10:06] VITALS: BP 137/69; PULSE 82; RESP 18; TEMP 37.1; O2SAT 97
[2025-09-09 10:27] VITALS: BP 137/69
--- NOTE | 2025-09-09 11:51 | PC.NURSE ---
patient a&ox3, vss, rr equal/non labored, has had c/o lle pain- was medicated for pain with relief, + csm/pulses to LLE, pure wick intact, pt meds with applesauce, fall precautions intact, call stevenson within reach, plan of care ongoing
[2025-09-09 13:42] VITALS: BP 102/56; PULSE 60; RESP 16; TEMP 36.9; O2SAT 90
--- NOTE | 2025-09-09 16:42 | PC.NURSE ---
pt medicated for 05/08 rt shoulder pain
[2025-09-09 22:00] VITALS: BP 130/66; PULSE 76; RESP 12; TEMP 37.1; O2SAT 90
--- NOTE | 2025-09-10 02:35 | PC.NURSE ---
Patient A/O x3, sleeping intermittently. Safety precautions in place, bed alarm on . Call stevenson within reach. Plan of care ongoing.
[2025-09-10] MEDS: oxyCODONE HCl Immed Release 5 MG TABLET PO ×2 (03:55→10:49)
[2025-09-10 06:33] VITALS: BP 140/73; PULSE 72; RESP 20; TEMP 36.8; O2SAT 92
--- NOTE | 2025-09-10 12:35 | MHC.CM.ED ---
Addendum entered by Susan Madsen 09/10/25 12:38: [facility] is not able to offer a bed. Waiting to hear from [facility]. Original Note: Patient remains in ER overflow. Updated physical therapy note and clinical updates sent to [facility] and [facility]. Continue to monitor for d/c needs.
[2025-09-10 14:00] VITALS: BP 139/68; PULSE 74; RESP 18; TEMP 36.8; O2SAT 92
--- NOTE | 2025-09-10 14:40 | MHC.CM.ED ---
[facility] and [facility] are not able to offer a bed if patient is having too much pain to participate in therapy. Caryn MOORE made aware and asked to order higher dose of pain med. Physical therapy asked to re-see patient tomorrow. Continue to monitor for d/c needs.
[2025-09-10] MEDS: oxyCODONE HCl Immed Release 5 MG TABLET 7.5 MG PO (20:02)
[2025-09-10 20:15] VITALS: BP 137/70; PULSE 83; RESP 16; TEMP 37.2; O2SAT 89
--- NOTE | 2025-09-10 20:21 | PC.NURSE ---
RN assumed care of this pt at around 1900-pt is plesant, axox4, able to make needs known. RN adjusted her purewick as pt felt wet. Pt medicated her mar. When tech took vitals pts O2 was 87- pt currently asymptomatic. O2 remained at 85-87 range; RN put pt on 2 L NC with O2 improvement- now stating at 97. bed alarm is on, call stevenson within reach, bed at lowest level. Will continue to monitor.
[2025-09-10 20:28] VITALS: O2SAT 97
[2025-09-11] VITALS (8 sets, daily range): BP systolic 97–149; BP diastolic 53–68; PULSE 76–82; RESP 16–20; TEMP 36.7–37.6; O2SAT 86–98
[2025-09-11] MEDS: oxyCODONE HCl Immed Release 5 MG TABLET 7.5 MG PO ×2 (08:40→20:28)
--- NOTE | 2025-09-11 09:33 | PC.NURSE ---
Patient repositioned in bed, states resting comfortably. Dentures cleaned, brushed teeth, self placed dentures in mouth. Breakfast set up for patient to eat. Bed alarm on. Call stevenson placed within reach. Medicated per DEC. Patient states she takes two pills at a time with water, tolerated well. Non-constituted meds returned to [facility].
--- NOTE | 2025-09-11 12:59 | MHC.CM.ED ---
Patient remains in ER overflow. Updated physical therapy eval sent to [facility]. [facility] feels patient is not able to participate in 3 hours of therapy and will not be able to offer a bed. Met with patient to discuss d/c planning. Patient states she will not be able to privately pay for STR and wants CM to call [employer]. T/W explained [employer] is supplement, not Medicare advantage plan and that multiple people ([facility], [facility] and [facility]) verified this. Patient became upset stating what do I pay for then? Patient verbalizes that she is unable to privately pay for STR and will need to return home with [facility] for physical therapy and occupational therapy via BLS. [facility] is able to accept patient. Patient agreeable. [facility] booked for 3pm. Patient, Celina ECHEVARRIA and Laura MOORE were made aware. Made aware by Laura MOORE that patient is now hypoxic. CTA chest is ordered and pending. Transport put on hold at this time. Continue to monitor for d/c needs.
--- NOTE | 2025-09-11 13:02 | MHC.EDTECH ---
This tech received a call from the Laura MOORE and requested an O2 sat on patient, patient sats on room air were 86% to 88%, RN placed pt on 2L VNC,per request of provider, patients sats are at 95% at this time.
[2025-09-11] MEDS: iohexoL 350 MG/ML 100 ML INFUS..BTL IV (18:33)
--- NOTE | 2025-09-11 20:42 | PC.NURSE ---
Addendum entered by Brittny Brice RN 09/12/25 05:47: Patient found with brief (to assist with maintaining PW placement) still in place but purewick on floor under pt's bed rail. Pt educated on purewick use for incontinence management for skin integrity. Pt verbalized understanding of device use and agreed to replacement. Incontinence care provided and new purewick was placed. Original Note: Assumed care of this patient at 19:00. Pt continues in ED overflow. Pt is A&Ox2 to self and year. Reoriented to place and situation. Forgetful. Pt on 1L nc on assuming care, recent CTA done earlier this evening for desats prior to typewriter assembly and parts inspector assuming care per report/chart review. Pt denies trouble breathing and is able to communicate her needs in full sentences without distress. OSCAR De Leon rounded to bedside this evening ~20:[address] pt on room air, done with provider at bedside, spo2 ranging 88-91%. PA verbal orders okay for spo2 88-92%/co2 retaininer oxygen protocol. C/o pain rated by pt 9/10 (admitted with pelvic fx). Pt medicated per DEC with effectiveness pending. Pt declined scheduled bowel regimen. Abdomen is soft, non-tender, non-distended. +BSx4. Incontinent of urine. Incontinence care provided and purewick replaced. Barrier cream applied to buttocks for protection and patient repositioned. Bed alarm on and safety measures in place.
--- NOTE | 2025-09-11 21:20 | MHC.CM.ED ---
Pt oxygen weaned down and removed. Pt will be observed overnight to assess any needs for continuing oxygen therapy. If stable in the am, will d/c to home with [facility].
[2025-09-12 00:26] VITALS: RESP 16; O2SAT 88
[2025-09-12 05:08] VITALS: BP 150/68; PULSE 79; RESP 18; TEMP 36.8; O2SAT 92
--- NOTE | 2025-09-12 09:49 | MHC.CM.ED ---
Addendum entered by Susan Madsen 09/12/25 12:29: Patient's son Stuart bedside. Stuart aware no acute rehab bed offers available and that patient is unable to privately pay for STR. Referral made to [facility] so they can reach out to Stuart to see if there are any services patient will qualify for. Stuart states he will transport patient home. [facility] booked. Original Note: Patient remains in ER overflow. No oxygen needed overnight. Per Caryn PA, no hospital admission needed. Met with patient in regards to discharge planning. Will d/c home with [facility] via BLS at 2pm. Med nec with chart. Patient, Yris ECHEVARRIA and Caryn PA aware. Continue to monitor for d/c needs.
[2025-09-12 12:58] VITALS: BP 150/68; PULSE 79; RESP 18; TEMP 36.8; O2SAT 92
== END 2025-09-12 13:39 | disposition home or self-care (01) ==
PROVIDERS: Emergency Provider Emergency Medicine; PCP Internal Medicine
DX: N39.0 Urinary tract infection, site not specified (principal); S32.592D Other specified fracture of left pubis, subsequent encounter for fracture with routine healing; I10 Essential (primary) hypertension; R09.02 Hypoxemia; J43.9 Emphysema, unspecified; W19.XXXD Unspecified fall, subsequent encounter; Z79.899 Other long term (current) drug therapy; Z87.891 Personal history of nicotine dependence
CPT/HCPCS: 36415; 71275; 80048; 80076; 81001; 85025; 87086; 96360; 97162; 97530; 99285; Q9967

== ENCOUNTER → 2025-09-11 12:58 | Outpatient (BNV) | payer MEDICARE, OTHER, SELFPAY | PROVIDERS: Emergency Provider Emergency Medicine; PCP Internal Medicine; Visit Provider Radiology Diagnostic Radiology | DX: J43.2 Centrilobular emphysema (principal); R91.1 Solitary pulmonary nodule | CPT/HCPCS: 71275 ==

== ENCOUNTER 2025-10-10 10:54 | Emergency (ER) | payer MEDICARE, OTHER, SELFPAY ==
--- NOTE | ~2025-10-10 | XR_ITS ---
EXAMINATION: XR PELVIS CLINICAL INFORMATION: prior rami fx, worsening L posterior pain COMPARISON: CT from 09/07/2025 TECHNIQUE: AP view of the pelvis. FINDINGS: On the prior CT, there is a fracture through the left pubic body. On the x-ray, there is mild deformity and patchy osteopenia. No acute abnormality is detected. There is mild degenerative change of the SI joints. There is mild degenerative change of the left hip with minute marginal osteophytes.. XR/XR pelvis 1-2V IMPRESSION: Early signs of healing of the left pubic body fracture. Mild degenerative change, bilateral SI and left hip joints. Electronically signed by: Rudolph Kunz MD 10/10/2025 12:06 PM [facility]
--- NOTE | ~2025-10-10 | XR_ITS ---
EXAMINATION: XR CHEST CLINICAL INFORMATION: cough COMPARISON: None available. TECHNIQUE: Frontal view of the chest was obtained. FINDINGS: Cardiac and mediastinal silhouette is within normal limits. Mild interstitial prominence in bilateral lungs. No confluent consolidation. No effusion. No edema. No pneumothorax. Redemonstrated sclerotic foci the proximal humeral neck/metaphysis, unchanged from the shoulder x-ray of 09/07/2025 XR/XR chest 1V IMPRESSION: Mild interstitial prominence, could reflect chronic findings, inflammatory/infectious process. No confluent consolidation is seen. Electronically signed by: Jose Ortez MD 10/10/2025 12:05 PM [facility]
--- NOTE | ~2025-10-10 | CT_ITS ---
EXAMINATION: CT CHEST ANGIOGRAPHY WITH IV CONTRAST INDICATION: dimer, hypoxia COMPARISON: Comparison is made with the prior examination dated 09/11/2025. TECHNIQUE: Helical CT scan of the chest was performed following administration of intravenous contrast (65 mL Omnipaque 350). The contrast bolus was timed to optimally opacify the pulmonary arteries. Thin sections were obtained through the pulmonary arteries. Coronal and sagittal reformatted images were generated. 3D/MIP reconstructed images are also obtained and reviewed. This CT exam was performed with one or more of the following dose reduction techniques: automated exposure control, adjustment of the mA and/or kV according to patient size, use of iterative reconstruction technique. DLP: 126 mGy-cm CHEST: THYROID: The thyroid gland is unremarkable. PULMONARY ARTERIES: No intraluminal filling defects are identified within the pulmonary arteries to suggest pulmonary emboli. LUNGS: Again seen is severe emphysema. There is scarring at the lung apices with associated calcification. There is subsegmental atelectasis bilaterally approximately 10 x 5 mm nodular density in the right upper lobe (series 9, images 29-33) is stable. MEDIASTINUM: There is no mediastinal lymphadenopathy. LONDON: There is no hilar lymphadenopathy. CARDIOVASCULATURE: The heart is normal in size. There is no pericardial effusion. The thoracic aorta is normal in caliber. DEGREE OF CORONARY CALCIFICATION: not evaluable, due to dense contrast in the coronary arteries PLEURA: There is no pleural effusion. No pneumothorax. MAIN AIRWAYS: The mainstem bronchi and proximal branches are patent. AXILLA: There is no axillary lymphadenopathy. UPPER ABDOMEN: The visualized portions of the liver, spleen, and adrenals are unremarkable. BONES AND SOFT TISSUES: Unremarkable. CT/CT angio chest PE protocol IMPRESSION: No evidence of pulmonary emboli. Severe emphysema. Stable right upper lobe nodular opacity for which continued follow-up is recommended. Electronically signed by: Hiram Peña MD 10/10/2025 03:46 PM EST
[2025-10-10 10:58] VITALS: BP 170/110; PULSE 86; O2SAT 98
[2025-10-10 11:16] VITALS: BP 172/85; PULSE 82; RESP 16; TEMP 36.8; O2SAT 91; BMI 16.1
--- NOTE | 2025-10-10 11:21 | ED_ITS ---
HPI - Trauma General Chief Complaint: Extremity Injury, Lower Stated Complaint: HIP PAIN Time Seen by Provider: 10/10/25 10:58 History of Present Illness ED Provider: autumn ROSS narrative: Author / Clinician: Conor Mccray MD (Emergency Medicine) Chief Complaint Worsening pelvic and low-back/leg pain following recent left pelvic fractures; patient requests repeat X-ray. History of Present Illness The patient presents to the Emergency Department for evaluation of increasing pain after sustaining left superior and inferior pubic ramus fractures on 10/06 and 10/09 (per patient). She was advised to weight-bear as tolerated but reports facility staff discouraged ambulation, leading to prolonged bedrest. Since discharge she has been ambulating at home with a walker and has had no additional falls. Over the past week her pain has progressively worsened and is now described as ?like a Isai horse and a bolt of lightning? involving the lower back and posterior leg. Pain is inadequately controlled with the seven tablets of Percocet supplied at discharge (taken one tablet each on Monday, , and today at ~11 AM). Functional status has declined: she now requires assistance for toileting and is unable to prepare meals or perform prior home exercises. The patient previously received physical therapy at home and performed prescribed exercises, but is now unable to continue these due to worsening pain and weakness. She denies new trauma, repeat falls, leg swelling, or prior history of blood clots. She reports remote tobacco use but quit years ago; no history of chronic lung disease and currently denies cough, hemoptysis, or sputum production. She reports drinking ?a lot of water,? though acknowledges possible mild dehydration. Oxygen saturation was noted to be ?a little low? by EMS and in the ED. The patient lives with her two sons (one of whom is undergoing cancer treatment) and is open to speaking with a adult protective caseworker regarding short-term rehabilitation placement. PT evaluation is requested. Review of Systems - Musculoskeletal: Positive for severe pelvic/low-back and posterior leg pain; decreased ambulation. - Neurologic: No reported focal weakness or numbness aside from pain-related limitation. - Respiratory: Denies current cough, hemoptysis, or sputum; notes prior brief cough now resolved. - Constitutional: Denies recent falls since initial injury. - Hematologic: Denies calf swelling or history of DVT/PE. Physical Exam: - General: Appears uncomfortable, dry mucous membranes noted (?you?re dry, honey?). - Musculoskeletal: Able to lift left leg with pain; tenderness over pelvis/low back; movement limited by pain. - Neurologic: Strength grossly 5/5 distally when tested (squeezed examiner?s fingers); sensation intact to light touch in lower extremities; facial symmetry intact; appropriate affect. - Respiratory: No cough elicited on exam; mild desaturation noted (exact value not recorded). Emergency Department Course Plan discussed with patient: obtain repeat pelvic imaging, comprehensive blood work, evaluation for possible venous thrombosis, intravenous hydration, physical therapy assessment, and case-management consultation for potential short-term rehabilitation placement. Pain management addressed; patient had taken one Percocet ~11 AM prior to arrival. PT and social work referrals placed. Assessment & Plan Diagnosis: 1. Acute on chronic pain secondary to left superior and inferior pubic ramus fractures (10/06 & 10/09). 2. Deconditioning and functional decline post-fracture. 3. Mild hypoxemia (etiology to determine). 4. Possible mild dehydration. 5. Social considerations: caregiver support strain. Plan: - Imaging: Repeat pelvic X-rays today. - Laboratory studies: Check blood work. - Assess for blood clot. - Hydration: Ensure patient is hydrated. - Physical Therapy: In-ED evaluation for mobility and safe discharge planning. - Case Management: Discuss temporary acute rehabilitation placement; arrange meeting with patient. - Pain Control: Continue current opioid as needed; reassess efficacy in ED. Disposition Pending results of imaging, labs, PT evaluation, and case-management recommendations. Past Medical / Surgical History - Remote right leg fracture (three places) [facility] (date not specified). Social History - Lives with two sons (one son age 50 undergoing cancer treatment). - Former smoker; quit ?long time ago.? - Previously independent with cooking and household activities; currently requires assistance for ADLs. Medications - Percocet ? total of seven tablets dispensed; patient has taken one tablet each on Mon, Mon, and today. Allergies Related Data Home Medications ?Medication ?Instructions ?Recorded ?Confirmed amlodipine 5 mg tablet 5 mg PO DAILY 08/08/2510/13 atorvastatin 20 mg tablet (Lipitor) 20 mg PO DAILY 08/2310/13/25 cholecalciferol (vitamin D3) 25 25 mcg PO DAILY 10/13/25 mcg (1,000 unit) capsule rasagiline 1 mg tablet 1 mg PO DAILY 08/08/2510/13 amantadine HCl 100 mg capsule 100 mg PO DAILY 09/09/25 10/13/25 rotigotine 3 mg/24 hour 1 patch topical DAILY 10/13/25 transdermal 24 hour patch (Neupro) acetaminophen 325 mg tablet 650 mg PO Q8H PRN Pain (Sc fabiola 10/11/25 10/13/25 Score 1-3) Previous Rx's ?Medication ?Instructions ?Recorded oxycodone 5 mg tablet 2.5 mg (1/2 x 5 mg) PO Q6H P RN 09/07/25 pain #7 tabs Allergies Allergy/AdvReac Type Severity Reaction Status Date / Time strawberry Allergy Unknown Verified 10/13/25 13:22 [facility] Past Medical History Medical History (Updated 10/13/25 @ 00:00 by Dejon Tovar) Hypertension Pulmonary nodule Emphysema of lung Social History Social History (Updated 08/08/25 @ 10:32 by Amelia Solis [facility]) Patient Tobacco Use Status: Former Tobacco user e-Cigarette/Vaping Use: Currently Using Advance Directives Date on File: 09/09/25 Physical Exam 2 Vital Signs: Vital Signs: Last Vital Signs Temp 97.7 F 10/12/25 05:37 Pulse 83 10/12/25 05:37 Resp 18 10/12/25 05:37 BP 154/70 H 10/12/25 05:37 Pulse Ox 98 10/12/25 05:37 O2 Del Method Room Air 10/12/25 05:37 O2 Flow Rate 2 10/10/25 16:45 BMI result Body Mass Index 16.1 Course Reevaluation(s) Reevaluation #1: 7:29 PM 10/10/2025 (Dr. Conor Mcrcay): Physician observation initiated at this time. Time: 21:00 Date: 10/10/25 Provider: OSCAR Amezcua Patient in physician observation for case management needs. No acute events reported.? No current issues or complaints. VS stable. Patient is pending placement at facility/pending PT/CM eval. Will continue to monitor. Time: 01:25 Date: 10/11/25 Provider: OSCAR Amezcua Patient in physician observation for case management needs. No acute events reported overnight.? No current issues or complaints. VS stable. Patient is pending placement at facility/pending PT/CM eval. Will continue to monitor. Time: 1052 Date: 10/11/25 Provider: Kym Oconnor APRN Patient in physician observation for case management needs. No acute events reported overnight.? No current issues or complaints. VS stable. Patient is pending placement at facility/pending PT/CM eval. Will continue to monitor. 10/11/25 OSCAR Garcia Physician observation continued. Uneventful night. Vital signs stable. No complaints from nursing overnight. Med reconciliation reviewed and done. Pending disposition. Will continue to monitor. Reevaluation #2: Patient will d/c to [facility] via BLS at 2pm Physician observation ended. Time: 11:18 Medications Administered Discontinued Medications Generic Name Dose Route Start Last Admin Trade Name Freq PRN Reason Stop Dose Admin Acetaminophen 650 mg 10/10/25 19:42 10/11/25 11:59 Acetaminophen 325 Mg Tablet PO 650 mg RQ4H WHILE AWAKE PRN Administration Pain, Mild 1-3,fever,headache Amantadine HCl 100 mg 10/11/25 09:00 10/12/25 08:53 Amantadine Hcl 100 Mg Capsule PO 100 mg DAILY JACKY Administration Amlodipine Besylate 5 mg 10/12/25 09:00 10/12/25 08:53 Amlodipine Besylate 5 Mg Tablet PO 5 mg DAILY JACKY Administration Protocol Atorvastatin Calcium 20 mg 10/12/25 09:00 10/12/25 08:53 Atorvastatin Calcium 20 Mg Tablet PO 20 mg DAILY JACKY Administration Docusate Sodium 200 mg 10/10/25 21:09 10/10/25 21:37 Docusate Sodium 100 Mg Capsule PO 10/10/25 21:10 Not Given ONCE ONE Enoxaparin Sodium 40 mg 10/10/25 21:00 10/11/25 21:31 Enoxaparin Sodium 40 Mg/0.4 Ml Syringe SUBCUT 40 mg Q24H JACKY Administration Sodium Chloride 1,000 mls @ 999 mls/hr 10/10/25 11:30 10/10/25 17:23 Ns IV 10/10/25 12:30 Infused .Q1H1M JACKY Infusion Iohexol 100 ml 10/10/25 15:01 10/10/25 15:01 Iohexol 350 Mg/Ml 100 Ml Infus..Btl IV 10/10/25 15:02 60 ml ONCE ONE Administration Methocarbamol 500 mg 10/10/25 11:25 10/10/25 12:30 Methocarbamol 500 Mg Tablet PO 10/10/25 11:26 500 mg ONCE ONE Administration Methocarbamol 500 mg 10/10/25 19:42 10/12/25 06:30 Methocarbamol 500 Mg Tablet PO 10/13/25 19:41 500 mg RQ8H PRN Administration Pain, Mild 1-3,fever,headache Morphine Sulfate 7.5 mg 10/10/25 19:42 10/12/25 06:08 Morphine Sulfate Immed Release 15 Mg Tablet PO 10/13/25 19:41 7.5 mg Q4H PRN Administration Pain, Moderate(Pain Scale 4-6) Non-Formulary Medication 1 mg 10/11/25 11:00 10/12/25 11:12 Rasagiline PO 1 mg DAILY@1030 [facility] Administration Non-Formulary Medication 1 patch 10/12/25 09:00 10/12/25 10:02 Rotigotine [Neupro] TOPICAL Not Given DAILY@1030 [facility] Simethicone 160 mg 10/10/25 21:09 10/10/25 21:37 Simethicone 80 Mg Tab.Chew PO 10/10/25 21:10 Not Given ONCE ONE Vitamin D 25 mcg 10/12/25 09:00 10/12/25 08:53 Cholecalciferol (Vitamin D3) 25 Mcg Tablet PO 25 mcg DAILY JACKY Administration Medical Decision Making Medical Decision Making MDM Narrative: Impression: 79 female with recent rami fracture no new injuries on imaging here. Mild likely transient hypoxia to 91 while on oxycodone possibly hypoventilation related maybe chronic changes on chest x-ray CT PA negative for pulmonary emboli there was nodule there that can be looked into outpatient. Medically cleared at 17:00 for case management/physical therapy Lab Data 10/10/25 12:03 10/10/25 12:03 Labs: Lab Results 10/10/25 10/10/25 Range/Units 12:03 12:41 WBC 14.8 H (4.8-10.8) X10*3/uL RBC 4.70 (4.20-5.50) X10*6/uL Hgb 14.2 (12.0-16.0) g/dl Hct 44.0 (37.0-47.0) % MCV 93.6 (80.0-98.0) fL MCH 30.2 (27.0-33.0) pg MCHC 32.3 (31.0-35.0) g/dl RDW 12.3 (11.0-16.0) % Plt Count 436 H D (160-400) X10*3/uL MPV 9.0 L (9.4-12.3) fL Immature Gran % (Auto) 0.7 H (0.0-0.4) % Neut % (Auto) 86.7 H (45-73) % Lymph % (Auto) 5.8 L (20-40) % Hale % (Auto) 5.8 (2-11) % Eos % (Auto) 0.7 (0-4) % Baso % (Auto) 0.3 (0-2) % Lymph # (Auto) 0.9 L (1.2-4.9) X10*3/uL Hale # (Auto) 0.9 (0.1-1.2) X10*3/uL Eos # (Auto) 0.1 (0.0-0.4) X10*3/uL Baso # (Auto) 0.1 (0.0-0.2) X10*3/uL Abs Immat Gran (auto) 0.11 H (0.00-0.03) X10*3/uL Absolute Neuts (auto) 12.8 H (2.0-8.3) x10*3/uL Absolute Nucleated RBC 0.000 (0.0-0.012) X10*3/uL Nucleated RBC % (auto) 0.0 (0.0-0.2) /100WBC D-Dimer High Sensitivty 963 NG/ML Sodium 139 (135-145) mmol/L Potassium 4.1 (3.3-5.1) mmol/L Chloride 101 (96-108) mmol/L Carbon Dioxide 28 (22-29) mmol/L Anion Gap 14 (12-20) BUN 14 (9-16) mg/dL Creatinine 0.59 (0.5-1.4) mg/dL Estim Creat Clear Calc 45.7 Estimated GFR > 60 Random Glucose 129 H (60-115) mg/dL Lactic Acid 1.1 (0.5-2.0) mmol/L Calcium 9.5 D (8.4-10.2) mg/dL Influenza Type A (PCR) NEGATIVE (Negative) Influenza Type B (PCR) NEGATIVE (Negative) RSV RNA Qual (PCR) NEGATIVE (Negative) SARS-CoV-2 RNA (RT-PCR) NEGATIVE (Negative) Critical Care Time Critical Care Time Critical Care Time: No Discharge Plan Discharge Clinical Impression: Physical deconditioning, Fall, Fracture of left superior pubic ramus, Fracture of left inferior pubic ramus, Degenerative joint disease of left hip, Emphysema, unspecified, Opacity of lung on imaging study Patient Disposition: Xfer Inpatient Rehab Fac Transfer Details: TO [facility], DR LEO ACCEPTING Instructions: Fatigue (ED), Fall Prevention (ED) Additional Instructions: Take your medications as prescribed. If you were prescribed antibiotics today, it is important that you take your medication to their entirety, do not skip any doses, do not finish them early. Follow-up with your primary care provider this week. Return to the emergency department with new or worsening symptoms. Such as fevers, chills, chest pain, shortness of breath, nausea, vomiting, dizziness, headache, vision changes, lethargy In case of emergency call 911 Prescriptions: No Action oxycodone 5 mg tablet 2.5 mg PO Q6H PRN (Reason: pain) Qty: 7 0RF Rx Instructions: Partial Fill upon patient request. amantadine HCl 100 mg capsule 100 mg PO DAILY Neupro 3 mg/24 hour patch 24 hour 1 patch topical DAILY acetaminophen 325 mg Tablet 650 mg PO Q8H PRN (Reason: Pain (Scale Score 1-3)) atorvastatin [Lipitor] 20 mg tablet 20 mg PO DAILY amlodipine 5 mg tablet 5 mg PO DAILY cholecalciferol (vitamin D3) 25 mcg (1,000 unit) capsule 25 mcg PO DAILY rasagiline 1 mg tablet 1 mg PO DAILY Referrals: [facility] [Other] Susi Florez DO [Primary Care Provider, Osteopathic Medicine] Discharge Date/Time: 10/12/25 14:15 Print Language: Tamazight
--- NOTE | 2025-10-10 11:48 | MHC.CM.PN ---
Rec'd CM consult. Will await imaging and PT eval.
[2025-10-10 12:10] LABS: MANUAL DIFF FLAG NO
[2025-10-10 12:14] LABS: Hematocrit 44.0 % (37.0-47.0); Hemoglobin 14.2 g/dl (12.0-16.0); Imm Gran Abs Auto 0.11 X10*3/uL (0.00-0.03); Imm Gran Pct Auto 0.7 % (0.0-0.4); Lymphocytes Absolute Auto 0.9 X10*3/uL (1.2-4.9); Mean Corpuscular HGB Conc 32.3 g/dl (31.0-35.0); Mean Corpuscular Hemoglobin 30.2 pg (27.0-33.0); Mean Corpuscular Volume 93.6 fL (80.0-98.0); NRBC Abs Auto 0.000 X10*3/uL (0.0-0.012); NRBC Pct Auto 0.0 /100WBC (0.0-0.2); Platelet Count 436 X10*3/uL (160-400); Red Blood Count 4.70 X10*6/uL (4.20-5.50); White Blood Count 14.8 X10*3/uL (4.8-10.8)
[2025-10-10 12:21] LABS: D Dimer High Sensitivity 963 NG/ML
[2025-10-10 12:27] VITALS: BP 175/82; PULSE 82; RESP 20; TEMP 36.7; O2SAT 99
[2025-10-10 12:30] LABS: Anion Gap 14 (12-20); Blood Urea Nitrogen 14 mg/dL (9-16); Calcium 9.5 mg/dL (8.4-10.2); Carbon Dioxide 28 mmol/L (22-29); Chloride 101 mmol/L (96-108); Creatinine Clr Calc Pharmacy 45.7; Estimated Glomerular Filt Rate > 60; Potassium 4.1 mmol/L (3.3-5.1); Sodium 139 mmol/L (135-145)
[2025-10-10 13:01] LABS: Resp Syncy Virus RNA Qual PCR NEGATIVE (Negative); SARS COV2 PCR INHOUSE NEGATIVE (Negative)
--- NOTE | 2025-10-10 14:26 | MHC.CM.PN ---
Addendum entered by Sandy Betts 10/10/25 14:33: PCP DR. CODY PAREDES Original Note: CM RECEIVED ED CM CONSULT . CM MET WITH PT AT BEDSIDE. PT LIVES WITH SONS AND IS FUNCTIONALLY INDEPENDENT AT BASELINE BUT DOES HAVE A CANE/WALKER IF NEEDED. NO SERVICES. + HCP ON FILE AND VERIFIED. DP: AWAITING P.T. EVAL FOR DC DISPO NEEDS. PT IS AGREEABLE TO REHAB IF RECOMMENDED. CM FOLLOWING FOR PLAN.
[2025-10-10] MEDS: iohexoL 350 MG/ML 100 ML INFUS..BTL IV (15:01)
[2025-10-10 16:45] VITALS: BP 172/74; PULSE 86; RESP 16; TEMP 36.3; O2SAT 92
--- NOTE | 2025-10-10 17:23 | MHC.CM.ED ---
Awaiting PT. No Q.S. Will make referrals to acute rehabs.
--- OUTSIDE RECORDS SUMMARY | 2025-10-10 18:01 | XMS_ITS | Clinical Summary ---
Author Organization [employer] Address [address] [place] [address] Care Team Providers Care Dental Biller Name Role Phone Unavailable Primary Care Provider [...]
--- NOTE | 2025-10-10 19:51 | PC.NURSE ---
RN did a med rec on the phone with ashley from [facility] Pharmacist stated pt has been noncompliant with amlodipine and atorvastatin - last picked up in march 2025. Per pharmacy: pt only taking amantadine 100 mg/daily. made aware.
[2025-10-10] MEDS: Morphine Sulfate Immed Release 15 MG TABLET 7.5 MG PO (20:39)
[2025-10-10 20:47] VITALS: BP 116/56; PULSE 87; RESP 20; TEMP 36.8; O2SAT 92
[2025-10-11 06:00] VITALS: BP 153/83; PULSE 73; RESP 18; TEMP 36.6; O2SAT 96
--- NOTE | 2025-10-11 09:35 | PHA.MEDREC ---
Pharmacy Consult ? Medication Reconciliation Pharmacy has completed the medication reconciliation. Utilized list from David RAMOS
--- NOTE | 2025-10-11 13:09 | MHC.CM.ED ---
Addendum entered by Susan Madsen 10/11/25 13:10: Received notification patient is active with [facility]. Return referral made. Original Note: Patient remains in ER overflow. Physical therapy eval completed. Rehab is recommended. [facility] is not able to offer a bed. Clinical updates sent to [facility] and [facility]. Waiting to hear if either can offer a bed. Continue to monitor for d/c needs.
[2025-10-11 13:42] VITALS: BP 114/53; PULSE 78; RESP 12; TEMP 36.4; O2SAT 94
[2025-10-11] MEDS: Morphine Sulfate Immed Release 15 MG TABLET 7.5 MG PO (16:51)
[2025-10-11 19:52] VITALS: BP 145/66; PULSE 71; RESP 16; TEMP 36.5; O2SAT 95
--- NOTE | 2025-10-12 03:27 | PC.NURSE ---
Assumed care of pt, presented to the ED on 10/10/2025 for decreased mobility and increased pain after she sustained a fall on 09/06 and was dx with a pelvic fx, Pt has Left superior and inferior pubic rami fx, pt, pt is aaox3, nad, plan for pt is STR
[2025-10-12 05:37] VITALS: BP 154/70; PULSE 83; RESP 18; TEMP 36.5; O2SAT 98
[2025-10-12] MEDS: Morphine Sulfate Immed Release 15 MG TABLET 7.5 MG PO (06:08)
--- NOTE | 2025-10-12 11:34 | MHC.CM.ED ---
Patient remains in ER overflow. [facility] is able to offer a bed. Patient accepts. Mario PEREZ booked for 2pm. Med [facility] with chart. Patient, son Monica Davidson RN and Joanie MOORE aware. Continue to monitor for d/c needs.
== END 2025-10-12 14:15 ==
PROVIDERS: Registered Nurse Emergency; Emergency Provider Emergency Medicine; PCP Internal Medicine
DX: R53.81 Other malaise (principal); M16.12 Unilateral primary osteoarthritis, left hip; J43.9 Emphysema, unspecified; M54.50 Low back pain, unspecified; S32.512D Fracture of superior rim of left pubis, subsequent encounter for fracture with routine healing; S32.592D Other specified fracture of left pubis, subsequent encounter for fracture with routine healing; W00.0XXD Fall on same level due to ice and snow, subsequent encounter; Z03.818 Encounter for observation for suspected exposure to other biological agents ruled out; Z87.891 Personal history of nicotine dependence
CPT/HCPCS: 36415; 71045; 71275; 72170; 80048; 83605; 85025; 85379; 87040; 87637; 96360; 96361; 96372; 97162; 99284; 99285; J1650; Q9967

== ENCOUNTER → 2025-10-10 11:25 | Outpatient (BNV) | payer MEDICARE, OTHER, SELFPAY | PROVIDERS: Emergency Provider Emergency Medicine; PCP Internal Medicine; Visit Provider Radiology Diagnostic Ultrasound | DX: S32.502D Unspecified fracture of left pubis, subsequent encounter for fracture with routine healing (principal); M46.1 Sacroiliitis, not elsewhere classified; M16.12 Unilateral primary osteoarthritis, left hip | CPT/HCPCS: 72170 ==

== ENCOUNTER 2025-10-13 08:32 | Outpatient (REF) | payer MEDICARE, OTHER, SELFPAY ==
--- NOTE | ~2025-10-13 | XR_ITS ---
EXAMINATION: XR PELVIS CLINICAL INFORMATION: M25.559 - Pain in unspecified hip , follow-up pubic fracture COMPARISON: 10/10/2025 x-ray and CT from 09/07/2025 TECHNIQUE: AP view of the pelvis. FINDINGS: Fracture of the left pubic bone is partially obscured by overlapping stool in the rectum. There is no change in the mild deformity. There is increasing density of the bone bridging across the lateral margin of the left pubic bone. No other fractures are identified. There is mild degenerative change in bilateral SI joints. There is diffuse osteopenia. XR/XR pelvis 1-2V IMPRESSION: Continued healing of left pubic bone fracture. Osteopenia. Mild degenerative changes in the SI joints. Electronically signed by: Rudolph Kunz MD 10/13/2025 01:41 PM [facility]
--- OUTSIDE RECORDS SUMMARY | 2025-10-14 09:05 | XMS_ITS | Encounter Summary ---
Author Organization [facility] Address [address] [place] [address] Care Team Providers Care Business Center Manager Name Role Phone Julissa Lal MD Primary Care Provider Encounter Details Date Type Department Care Team (Late st Contact Info) Description 10/13/2025 Lab Requisition [facility] - Main Lab [address] [facility] [place] [phone] Risa Nazario PA [address] [place] [address] Encounter for other general examination Social History [...] AM EST) WBC 10.2 4.8 - 10.8 K/[facility] LAB HEMETOLOGY METHOD 10/13/2025 11:38 AM [facility] LAB RBC 4.40 3.80 - 4.80 M/mcL LAB HEMETOLOGY METHOD 10/13/2025 11:38 AM [facility] LAB Hemoglobin 13.7 11.5 - 16.0 g/dL LAB HEMETOLOGY METHOD 10/13/2025 11:38 AM [facility] LAB Hematocrit 42.2 35.0 - 47.0 % LAB HEMETOLOGY METHOD 10/13/2025 11:38 AM [facility] LAB MCV 95.3 79.0 - 98.0 FL LAB HEMETOLOGY METHOD 10/13/2025 11:38 AM [facility] LAB MCH 30.9 27.0 - 32.0 pcg LAB HEMETOLOGY METHOD 10/13/2025 11:38 AM [facility] LAB MCHC 32.5 32.0 - 37.0 g/dL LAB HEMETOLOGY METHOD 10/13/2025 11:38 AM [facility] LAB RDW 12.4 11.0 - 15.0 % LAB HEMETOLOGY METHOD 10/13/2025 11:38 AM [facility] LAB Platelets 493(H) 130 - 400 K/mcL LAB HEMETOLOGY METHOD 10/13/2025 11:38 AM [facility] LAB MPV 9.3 7.0 - 11.0 FL LAB HEMETOLOGY METHOD 10/13/2025 11:38 AM [facility] LAB NRBC 0.0 <1.0 % LAB HEMETOLOGY METHOD 10/13/2025 11:38 AM [facility] LAB NRBC Absolute 0.00 <0.10 K/mcL LAB HEMETOLOGY METHOD 10/13/2025 11:38 AM [facility] LAB Neutrophils Relative 71.6 % LAB HEMETOLOGY METHOD 10/13/2025 11:38 AM [facility] LAB Lymphocytes Relative 14.0 % LAB HEMETOLOGY METHOD 10/13/2025 11:38 AM [facility] LAB Monocytes Relative 9.7 % LAB HEMETOLOGY METHOD 10/13/2025 11:38 AM [facility] LAB Eosinophils Relative 3.1 % LAB HEMETOLOGY METHOD 10/13/2025 11:38 AM [facility] LAB Basophils Relative 0.9 % LAB HEMETOLOGY METHOD 10/13/2025 11:38 AM [facility] LAB Immature Granulocytes Relative 0.7 % LAB HEMETOLOGY METHOD 10/13/2025 11:38 AM [facility] LAB Neutrophils Absolute 7.28(H) 1.50 - 7.00 K/mcL LAB HEMETOLOGY METHOD 10/13/2025 11:38 AM [facility] LAB Lymphocytes Absolute 1.42 1.00 - 5.00 K/mcL LAB HEMETOLOGY METHOD 10/13/2025 11:38 AM [facility] LAB Monocytes Absolute 0.99 0.20 - 1.00 K/mcL LAB HEMETOLOGY METHOD 10/13/2025 11:38 AM [facility] LAB Eosinophils Absolute 0.31 0.00 - 0.50 K/mcL LAB HEMETOLOGY METHOD 10/13/2025 11:38 AM [facility] LAB Basophils Absolute 0.09 0.00 - 0.20 K/mcL LAB HEMETOLOGY METHOD 10/13/2025 11:38 AM [facility] LAB Immature Granulocytes Absolute 0.07(H) 0.00 - 0.03 K/mcL LAB HEMETOLOGY METHOD 10/13/2025 11:38 AM [facility] LAB Blood Venous blood specimen / Unknown Venipuncture / Unknown 10/13/2025 6:34 AM EST 10/13/2025 10:42 AM EST us [facility] BLOOD ORDERABLES Final Resu lt Performing Organization Address [facility]/ZIP Co de Phone Number [facility] LAB [address] [place] [address], [place] [phone] * Magnesium (10/13/2025 6:34 AM EST) Magnesium 2.2 1.9 - 2.6 mg/dL 10/13/2025 12:39 PM EST [facility] LAB Blood Venous blood specimen / Unknown Venipuncture / Unknown 10/13/2025 6:34 AM EST 10/13/2025 10:42 AM EST [facility] BLOOD ORDERABLES Final Resu lt Performing Organization Address [facility] Co de Phone Number [facility] LAB [address] [place] [address], [place] [phone] documented in this encounter Visit Diagnoses Diagnosis Encounter for other general examination documented in this encounter Care Teams Business Center Manager Relationship Specialty Start Date End Date Julissa Lal MD [address] [place], [place] PCP - General Pulmonology 08/16/19 documented as of this encounter
--- OUTSIDE RECORDS SUMMARY | 2025-10-14 09:05 | XMS_ITS | Clinical Summary ---
Author Organization 299 [facility] Address [address] [place] [address] Phone Care Team Providers Care Ict Business Development Manager Name Role Phone Julissa Lal MD Primary Care Provider Encounters Date Type Department Care Team Description 10/13/2025 Lab Requisition [facility] - Main Lab 299 [facility] [place] [address] Risa Nazario PA Encounter for [...] K/mcL LAB HEMETOLOGY METHOD 10/13/2025 11:38 AM [facility] LAB RBC 4.40 3.80 - 4.80 M/mcL LAB HEMETOLOGY METHOD 10/13/2025 11:38 AM [facility] LAB Hemoglobin 13.7 11.5 - 16.0 g/dL LAB HEMETOLOGY METHOD 10/13/2025 11:38 AM [facility] LAB Hematocrit 42.2 35.0 - 47.0 % LAB HEMETOLOGY METHOD 10/13/2025 11:38 AM [facility] LAB MCV 95.3 79.0 - 98.0 FL LAB HEMETOLOGY METHOD 10/13/2025 11:38 AM [facility] LAB MCH 30.9 27.0 - 32.0 pcg LAB HEMETOLOGY METHOD 10/13/2025 11:38 AM [facility] LAB MCHC 32.5 32.0 - 37.0 g/dL LAB HEMETOLOGY METHOD 10/13/2025 11:38 AM [facility] LAB RDW 12.4 11.0 - 15.0 % LAB HEMETOLOGY METHOD 10/13/2025 11:38 AM [facility] LAB Platelets 493(H) 130 - 400 K/mcL LAB HEMETOLOGY METHOD 10/13/2025 11:38 AM [facility] LAB MPV 9.3 7.0 - 11.0 FL LAB HEMETOLOGY METHOD 10/13/2025 11:38 AM [facility] LAB NRBC 0.0 <1.0 % LAB HEMETOLOGY METHOD 10/13/2025 11:38 AM [facility] LAB NRBC Absolute 0.00 <0.10 K/mcL LAB HEMETOLOGY METHOD 10/13/2025 11:38 AM [facility] LAB Neutrophils Relative 71.6 % LAB HEMETOLOGY METHOD 10/13/2025 11:38 AM [facility] LAB Lymphocytes Relative 14.0 % LAB HEMETOLOGY METHOD 10/13/2025 11:38 AM [facility] LAB Monocytes Relative 9.7 % LAB HEMETOLOGY METHOD 10/13/2025 11:38 AM [facility] LAB Eosinophils Relative 3.1 % LAB HEMETOLOGY METHOD 10/13/2025 11:38 AM [facility] LAB Basophils Relative 0.9 % LAB HEMETOLOGY METHOD 10/13/2025 11:38 AM [facility] LAB Immature Granulocytes Relative 0.7 % LAB HEMETOLOGY METHOD 10/13/2025 11:38 AM EST [facility] LAB Neutrophils Absolute 7.28(H) 1.50 - 7.00 K/[facility] LAB HEMETOLOGY METHOD 10/13/2025 11:38 AM EST [facility] LAB Lymphocytes Absolute 1.42 1.00 - 5.00 K/mcL LAB HEMETOLOGY METHOD 10/13/2025 11:38 AM EST [facility] LAB Monocytes Absolute 0.99 0.20 - 1.00 K/[facility] LAB HEMETOLOGY METHOD 10/13/2025 11:38 AM EST [facility] LAB Eosinophils Absolute 0.31 0.00 - 0.50 K/[facility] LAB HEMETOLOGY METHOD 10/13/2025 11:38 AM EST [facility] LAB Basophils Absolute 0.09 0.00 - 0.20 K/mcL LAB HEMETOLOGY METHOD 10/13/2025 11:38 AM EST [facility] LAB Immature Granulocytes Absolute 0.07(H) 0.00 - 0.03 K/mcL LAB HEMETOLOGY METHOD 10/13/2025 11:38 AM EST [facility] LAB Blood Venous blood specimen / Unknown Venipuncture / Unknown 10/13/2025 6:34 AM EST 10/13/2025 10:42 AM EST us Risa MOORE LAB BLOOD ORDERABLES Final Resu lt [facility] LAB [address] [place] [address], * Magnesium (10/13/2025 6:34 AM EST) Magnesium 2.2 1.9 - 2.6 mg/dL 10/13/2025 12:39 PM EST [facility] LAB Blood Venous blood specimen / Unknown Venipuncture / Unknown 10/13/2025 6:34 AM EST 10/13/2025 10:42 AM EST us Risa MOORE LAB BLOOD ORDERABLES Final Resu lt HERLINDA NGUYEN [place] ([facility]) [facility] LAB [address] [place] [address], [place] [phone] from Last 3 Months Insurance MEDICARE [employer] Care Teams Ict Business Development Manager Relationship Specialty Start Date End Date Julissa Lal MD [address] [place], [place] PCP - General Pulmonology 08/16/19
--- OUTSIDE RECORDS SUMMARY | 2025-10-14 09:05 | XMS_ITS | Clinical Summary ---
Author Organization [employer] Address [address] [facility] [address] [place] [address] Care Team Providers Care Regional Medical Director Name Role Phone Unavailable Primary Care [...]
== END 2025-10-13 08:33 | disposition home or self-care (01) ==
LOC: HO.HOSX 08:32
PROVIDERS: Visit Provider Physician Assistant
DX: S32.592D Other specified fracture of left pubis, subsequent encounter for fracture with routine healing (principal); S32.512D Fracture of superior rim of left pubis, subsequent encounter for fracture with routine healing; W10.8XXD Fall (on) (from) other stairs and steps, subsequent encounter
CPT/HCPCS: 72170

== ENCOUNTER 2025-10-13 12:56 | Outpatient (AMB) | payer MEDICARE, OTHER, SELFPAY ==
--- NOTE | 2025-10-13 13:18 | A.OFFVIS_ITS ---
Intake Visit Reasons: OV- ER LT Pelvic fracture, ER on 09/07/25 Intake Note: Soledad is a 79 year old female who presents today for an ER follow up of left pubic ramus fracture. Patient presented to [facility] ER on 09/07/25, reporting a fall about 2-3 days prior. She returned the following day due to not being able to care for herself at home, she was discharged with [facility] referral. Today patient reports soreness in her pelvic area. Complaints of vibration like feeling in her leg, stating unsure if this is from her recently diagnosed Parkinson disease or from her fracture. Currently resides at [facility]. Allergies strawberry Allergy (Verified 10/13/25 13:22) Unknown Medication List - Last Reconciled 10/13/25 by Davon Bronson PA-C acetaminophen 650 mg PO Q8H PRN amantadine HCl 100 mg PO DAILY amlodipine 5 mg PO DAILY atorvastatin (Lipitor) 20 mg PO DAILY cholecalciferol (vitamin D3) 25 mcg PO DAILY oxycodone 2.5 mg (1/2 x 5 mg) PO Q6H PRN rasagiline 1 mg PO DAILY rotigotine (Neupro) 1 patch topical DAILY HPI Comments Details: History of Present Illness The patient is a 79 year old female presenting for an injury she sustained after a fall resulting in a left pubic rami fracture. She sustained the injury on September 06 after a fall backwards while navigating steps into her home and was unable to get up afterward. The patient reports experiencing pain, muscle spasms, and sharp pain in the affected leg since the injury. Past medical history is significant for parkinsons disease. Social History - Living Situation: The patient lives alone. - Functional Status: The patient is currently at a rehabilitation facility and is non-weight bearing on the left side, except for toe-touch for balance and transfers. [facility] Medical History (Updated 10/13/25 @ 00:00 by Dejon Tovar) Hypertension Pulmonary nodule Emphysema of lung Social History (Updated 08/08/25 @ 10:32 by Amelia Solis CMA) Patient Tobacco Use Status: Former Tobacco user e-Cigarette/Vaping Use: Currently Using Advance Directives Date on File: 09/09/25 Review of Systems Narrative Review of Systems - Musculoskeletal: Reports pain, muscle spasms, and sharp pain in the left leg. - Cardiovascular: Reports a history of significant heart disease. Physical Exam Extrem Other: Left hip without painful rom, she can perform hip flexion without pain. NVI. Office Procedures AMB Fracture Care Fracture Billing Code: Fracture Billing Code Results Reviewed Results Reviewed: Xrays were obtained in the office today and personally reviewed by me of the pelvis show stable fx Assessment & Plan Assessment & Plan (1) Fracture of left inferior pubic ramus: Code(s): S32.592A - Other specified fracture of left pubis, initial encounter for closed fracture Category: Medical Qualifiers: Encounter type: subsequent encounter Fracture healing: with routine healing Fracture type: closed Qualified Code(s): S32.592D - Other specified fracture of left pubis, subsequent encounter for fracture with routine healing (2) Fracture of left superior pubic ramus: Code(s): S32.512A - Fracture of superior rim of left pubis, initial encounter for closed fracture Category: Medical Qualifiers: Encounter type: subsequent encounter Fracture healing: with routine healing Fracture type: closed Qualified Code(s): S32.512D - Fracture of superior rim of left pubis, subsequent encounter for fracture with routine healing Plan 1. Left Pubic Rami Fracture The patient is approximately 5 weeks post-injury from a fall on September 06. Recent x-rays show the fracture is stable and healing, with an expected full recovery time of about three months. The plan is to continue non-weight bearing on the left side for another 6-7 weeks, though toe-touch for balance and transfers is permitted. The patient will continue to work with therapy at her rehabilitation facility to determine a safe discharge plan. A follow-up visit with a repeat x-ray is scheduled in 6-7 weeks. Consent Patient was informed and verbally consented to the use of an ambient scribe for clinic note documentation during this visit. Orders: Orders XR pelvis 1-2V Today M25.559 - Pain in unspecified hip Coding Level of Care Code New Pt Level 3 (59912) Add On Problem Visit Only Diagnoses Fracture of left inferior pubic ramus S32.592D Encounter type: subsequent encounter Fracture healing: with routine healing Fracture type: closed Fracture of left superior pubic ramus S32.512D Encounter type: subsequent encounter Fracture healing: with routine healing Fracture type: closed CPT Codes Fracture Care - Fracture Billing Code: Fracture Billing Code ([id number])
--- OUTSIDE RECORDS SUMMARY | 2025-10-13 18:48 | XMS_ITS | Clinical Summary ---
Author Organization [employer] Address [address] [place] [address] Care Team Providers Care Training Development Director Name Role Phone Unavailable Primary Care Provider [...]
--- OUTSIDE RECORDS SUMMARY | 2025-10-13 18:48 | XMS_ITS | Encounter Summary ---
Author Organization [facility] Address [address] [place] [address] Care Team Providers Care Philosophy Specialist Name Role Phone Julissa Lal MD Primary Care Provider Encounter Details Date Type Department Care Team (Late st Contact Info) Description 10/13/[address] [facility] - [facility] Lab [address] [facility] [place] [id number] Risa Nazario PA [address] [place] [address] Encounter for other general examination Social History Tobacco Use Types Packs/Day Years Used Date Smoking Tobacco: Never Cigarettes Smokeless Tobacco: Current Alcohol Use Standard Drinks/Week Comments No 0 (1 standard drink = 0.6 oz pur e alcohol) Comments Unknown Sex and Gender Information Value Date Recorded Sex Assigned at Not on file Legal Sex Female 2:42 AM EST Gender Identity Not on file Sexual Orientation Not on file documented as of this encounter Plan of Treatment Not on file documented as of this encounter Procedures Procedure Name Priority Date/Time Associated Diagnosis Comments CBC WITH AUTO DIFFERENTIAL Routine 10/13/2025 6:34 AM EST Encounter for other general examination CBC AND DIFFERENTIAL Routine 10/13/2025 6:34 AM EST Encounter for other general examination MAGNESIUM Routine 10/13/2025 6:34 AM EST Encounter for other general examination documented in this encounter Results * (ABNORMAL) CBC auto differential (10/13/2025 6:34 AM EST) WBC 10.2 4.8 - 10.8 K/[facility] LAB HEMETOLOGY METHOD 10/13/2025 11:38 AM [facility] LAB RBC 4.40 3.80 - 4.80 M/mcL LAB HEMETOLOGY METHOD 10/13/2025 11:38 AM [facility] LAB Hemoglobin 13.7 11.5 - 16.0 g/dL LAB HEMETOLOGY METHOD 10/13/2025 11:38 AM [facility] LAB Hematocrit 42.2 35.0 - 47.0 % LAB HEMETOLOGY METHOD 10/13/2025 11:38 AM [facility] LAB MCV 95.3 79.0 - 98.0 FL LAB HEMETOLOGY METHOD 10/13/2025 11:38 AM [facility] LAB MCH 30.9 27.0 - 32.0 pcg LAB HEMETOLOGY METHOD 10/13/2025 11:38 AM [facility] LAB MCHC 32.5 32.0 - 37.0 g/dL LAB HEMETOLOGY METHOD 10/13/2025 11:38 AM [facility] LAB RDW 12.4 11.0 - 15.0 % LAB HEMETOLOGY METHOD 10/13/2025 11:38 AM [facility] LAB Platelets 493(H) 130 - 400 K/mcL LAB HEMETOLOGY METHOD 10/13/2025 11:38 AM [facility] LAB MPV 9.3 7.0 - 11.0 FL LAB HEMETOLOGY METHOD 10/13/2025 11:38 AM [facility] LAB NRBC 0.0 <1.0 % LAB HEMETOLOGY METHOD 10/13/2025 11:38 AM [facility] LAB NRBC Absolute 0.00 <0.10 K/mcL LAB HEMETOLOGY METHOD 10/13/2025 11:38 AM [facility] LAB Neutrophils Relative 71.6 % LAB HEMETOLOGY METHOD 10/13/2025 11:38 AM [facility] LAB Lymphocytes Relative 14.0 % LAB HEMETOLOGY METHOD 10/13/2025 11:38 AM [facility] LAB Monocytes Relative 9.7 % LAB HEMETOLOGY METHOD 10/13/2025 11:38 AM [facility] LAB Eosinophils Relative 3.1 % LAB HEMETOLOGY METHOD 10/13/2025 11:38 AM [facility] LAB Basophils Relative 0.9 % LAB HEMETOLOGY METHOD 10/13/2025 11:38 AM [facility] LAB Immature Granulocytes Relative 0.7 % LAB HEMETOLOGY METHOD 10/13/2025 11:38 AM [facility] LAB Neutrophils Absolute 7.28(H) 1.50 - 7.00 K/mcL LAB HEMETOLOGY METHOD 10/13/2025 11:38 AM [facility] LAB Lymphocytes Absolute 1.42 1.00 - 5.00 K/mcL LAB HEMETOLOGY METHOD 10/13/2025 11:38 AM [facility] LAB Monocytes Absolute 0.99 0.20 - 1.00 K/mcL LAB HEMETOLOGY METHOD 10/13/2025 11:38 AM [facility] LAB Eosinophils Absolute 0.31 0.00 - 0.50 K/mcL LAB HEMETOLOGY METHOD 10/13/2025 11:38 AM [facility] LAB Basophils Absolute 0.09 0.00 - 0.20 K/mcL LAB HEMETOLOGY METHOD 10/13/2025 11:38 AM [facility] LAB Immature Granulocytes Absolute 0.07(H) 0.00 - 0.03 K/mcL LAB HEMETOLOGY METHOD 10/13/2025 11:38 AM [facility] LAB Blood Venous blood specimen / Unknown Venipuncture / Unknown 10/13/2025 6:34 AM EST 10/13/2025 10:42 AM EST [facility] Final Resu lt Performing Organization Address [facility]/ZIP Co de Phone Number [facility] [address] [place] [address], [place] [phone] * Magnesium (10/13/2025 6:34 AM EST) Magnesium 2.2 1.9 - 2.6 mg/dL 10/13/2025 12:39 PM EST [facility] Blood Venous blood specimen / Unknown Venipuncture / Unknown 10/13/2025 6:34 AM EST 10/13/2025 10:42 AM EST [facility] BLOOD ORDERABLES Final Resu lt Performing Organization Address [facility] Co de Phone Number [facility] [address] [place] [address], [place] [phone] documented in this encounter Visit Diagnoses Diagnosis Encounter for other general examination documented in this encounter Care Teams Philosophy Specialist Relationship Specialty Start Date End Date Julissa Lal MD [address] [place], [place] PCP - General Pulmonology 08/16/19 documented as of this encounter
--- OUTSIDE RECORDS SUMMARY | 2025-10-13 18:48 | XMS_ITS | Clinical Summary ---
Author Organization [address] [facility] Address [address] [place] [address] Phone Care Team Providers Care House Steward/Stewardess Name Role Phone Julissa Lal MD Primary Care Provider Encounters Date Type Department Care Team Description 10/13/2025 Lab Requisition [facility] - [facility] Lab [address] [facility] [place] [address] Risa Nazario PA Encounter for other general examination from Last 3 Months Social History Tobacco Use Types Packs/Day Years Used Date Smoking Tobacco: Never Cigarettes Smokeless Tobacco: Current Alcohol Use Standard Drinks/Week Comments No 0 (1 standard drink = 0.6 oz pur e alcohol) Comments Unknown Sex and Gender Information Value Date Recorded Sex Assigned at Not on file Legal Sex Female 2:42 AM EST Gender Identity Not on file Sexual Orientation Not on file Plan of Treatment Health Maintenance Due Date Last Done Comments DTaP,Tdap,and Td Vaccines (1 - Tdap) 1964 Pneumococcal Vaccine: 50+ Years (1 of 1 - PCV) 1995 Zoster Vaccines (1 of 2) 1995 RSV Immunization Adult Patients (1 - 1-dose 75+ series) 2020 Falls Risk Assessment 10/12/2022 Hepatitis C Screening 10/12/2022 Medicare Annual Wellness Visit 10/12/2022 Osteoporosis Screening (Bone Density Screening) 10/12/2022 Social Influencers of Health Screening 10/12/2022 Depression Screening 10/30/2024 COVID-19 Vaccine (2 - 2024-2 6 season) 2025 08/31/2023 Influenza Vaccine (#1) 2025 , 07/23/2018, 08/22/2012 [...] on patient's age to complete this topic MMR Vaccines Aged Out No longer eligi ble based on patient's age to complete this topic Meningococcal ACWY Vaccine Aged Out N o longer eligible based on patient's age to complete this topic Meningococcal B Vaccine Aged Out No l onger eligible based on patient's age to complete this topic RSV Immunization Patients Under 20 months Aged Out No longer eligible b ased on patient's age to complete this topic Varicella Vaccines Aged Out No longer eligible based on patient's age to complete this topic Procedures Procedure Name Priority Date/Time Associated Diagnosis Comments CBC WITH AUTO DIFFERENTIAL Routine 10/13/2025 6:34 AM EST Encounter for other general examination MAGNESIUM Routine 10/13/2025 6:34 AM EST Encounter for other general examination CBC AND DIFFERENTIAL Routine 10/13/2025 6:34 AM EST Encounter for other general examination from Last 3 Months Results * (ABNORMAL) CBC auto differential (10/13/2025 6:34 AM EST) WBC 10.2 4.8 - 10.8 K/mcL LAB HEMETOLOGY METHOD 10/13/2025 11:38 AM [facility] RBC 4.40 3.80 - 4.80 M/mcL LAB HEMETOLOGY METHOD 10/13/2025 11:38 AM [facility] LAB Hemoglobin 13.7 11.5 - 16.0 g/dL LAB HEMETOLOGY METHOD 10/13/2025 11:38 AM [facility] LAB Hematocrit 42.2 35.0 - 47.0 % LAB HEMETOLOGY METHOD 10/13/2025 11:38 AM [facility] LAB MCV 95.3 79.0 - 98.0 FL LAB HEMETOLOGY METHOD 10/13/2025 11:38 AM [facility] LAB MCH 30.9 27.0 - 32.0 pcg LAB HEMETOLOGY METHOD 10/13/2025 11:38 AM [facility] LAB MCHC 32.5 32.0 - 37.0 g/dL LAB HEMETOLOGY METHOD 10/13/2025 11:38 AM [facility] LAB RDW 12.4 11.0 - 15.0 % LAB HEMETOLOGY METHOD 10/13/2025 11:38 AM [facility] LAB Platelets 493(H) 130 - 400 K/mcL LAB HEMETOLOGY METHOD 10/13/2025 11:38 AM [facility] LAB MPV 9.3 7.0 - 11.0 FL LAB HEMETOLOGY METHOD 10/13/2025 11:38 AM [facility] LAB NRBC 0.0 <1.0 % LAB HEMETOLOGY METHOD 10/13/2025 11:38 AM [facility] LAB NRBC Absolute 0.00 <0.10 K/mcL LAB HEMETOLOGY METHOD 10/13/2025 11:38 AM [facility] LAB Neutrophils Relative 71.6 % LAB HEMETOLOGY METHOD 10/13/2025 11:38 AM [facility] LAB Lymphocytes Relative 14.0 % LAB HEMETOLOGY METHOD 10/13/2025 11:38 AM [facility] Monocytes Relative 9.7 % LAB HEMETOLOGY METHOD 10/13/2025 11:38 AM [facility] LAB Eosinophils Relative 3.1 % LAB HEMETOLOGY METHOD 10/13/2025 11:38 AM [facility] Basophils Relative 0.9 % LAB HEMETOLOGY METHOD 10/13/2025 11:38 AM [facility] LAB Immature Granulocytes Relative 0.7 % LAB HEMETOLOGY METHOD 10/13/2025 11:38 AM EST [facility] Neutrophils Absolute 7.28(H) 1.50 - 7.00 K/[facility] LAB HEMETOLOGY METHOD 10/13/2025 11:38 AM EST [facility] Lymphocytes Absolute 1.42 1.00 - 5.00 K/mcL LAB HEMETOLOGY METHOD 10/13/2025 11:38 AM EST [facility] Monocytes Absolute 0.99 0.20 - 1.00 K/[facility] LAB HEMETOLOGY METHOD 10/13/2025 11:38 AM EST [facility] Eosinophils Absolute 0.31 0.00 - 0.50 K/[facility] LAB HEMETOLOGY METHOD 10/13/2025 11:38 AM EST [facility] Basophils Absolute 0.09 0.00 - 0.20 K/mcL LAB HEMETOLOGY METHOD 10/13/2025 11:38 AM EST [facility] Immature Granulocytes Absolute 0.07(H) 0.00 - 0.03 K/mcL LAB HEMETOLOGY METHOD 10/13/2025 11:38 AM EST [facility] Blood Venous blood specimen / Unknown Venipuncture / Unknown 10/13/2025 6:34 AM EST 10/13/2025 10:42 AM EST us Risa MOORE LAB BLOOD ORDERABLES Final Resu lt [facility] [address] [place] [address], * Magnesium (10/13/2025 6:34 AM EST) Magnesium 2.2 1.9 - 2.6 mg/dL 10/13/2025 12:39 PM EST [facility] Blood Venous blood specimen / Unknown Venipuncture / Unknown 10/13/2025 6:34 AM EST 10/13/2025 10:42 AM EST us Risa MOORE LAB BLOOD ORDERABLES Final Resu lt HERLINDA NGUYEN [place] ([facility]) [facility] [address] [place] [address], [place] [phone] from Last 3 Months Insurance MEDICARE [employer] Care Teams House Steward/Stewardess Relationship Specialty Start Date End Date Julissa Lal MD [address] [place], [place] PCP - General Pulmonology 08/16/19
== END 2025-10-13 13:35 | disposition home or self-care (01) ==
LOC: HO.HOS 12:56
PROVIDERS: PCP Internal Medicine; Visit Provider Physician Assistant
DX: S32.592D Other specified fracture of left pubis, subsequent encounter for fracture with routine healing (principal); S32.512D Fracture of superior rim of left pubis, subsequent encounter for fracture with routine healing
CPT/HCPCS: 99203; G2211

== ENCOUNTER → 2025-10-13 12:57 | Outpatient (BNV) | payer MEDICARE, OTHER, SELFPAY | PROVIDERS: Visit Provider Radiology Diagnostic Radiology | DX: S32.502D Unspecified fracture of left pubis, subsequent encounter for fracture with routine healing (principal); M16.12 Unilateral primary osteoarthritis, left hip; M85.88 Other specified disorders of bone density and structure, other site | CPT/HCPCS: 72170 ==

== ENCOUNTER 2025-10-17 13:20 | Outpatient (REF) | payer MEDICARE, OTHER, SELFPAY ==
--- NOTE | ~2025-10-17 | CT_ITS ---
EXAMINATION: CT CHEST WITHOUT IV CONTRAST INDICATION: R91.1 - Solitary pulmonary nodule COMPARISON: Comparison is made with the prior examination dated 10/08/2025. TECHNIQUE: Helical CT scan of the chest was performed without intravenous contrast. Coronal and sagittal reformatted images were generated and reviewed. This CT exam was performed with one or more of the following dose reduction techniques: automated exposure control, adjustment of the mA and/or kV according to patient size, use of iterative reconstruction technique. DLP: 104 mGy-cm CHEST: THYROID: The thyroid is unremarkable. LUNGS: Again seen is severe emphysema. There is biapical pleural and parenchymal scarring. A 10 x 5 mm nodular opacity right upper lobe (series 6, image 28) is stable. There is a 6 mm nodular density at the left lung apex which is also stable (series 6, image 18). There is a probable intrapulmonary lymph node along the major fissure (series 6, image 75) without change. MEDIASTINUM: There is no mediastinal lymphadenopathy. [place]ON: Evaluation of the hilar regions is limited by lack of intravenous contrast material. CARDIOVASCULATURE: The heart is normal in size. There is no pericardial effusion. The thoracic aorta is normal in caliber. DEGREE OF CORONARY CALCIFICATION: mild PLEURA: There is no pleural effusion. No pneumothorax. MAIN AIRWAYS: The mainstem bronchi and proximal branches are patent. AXILLA: There is no axillary lymphadenopathy. BONES AND SOFT TISSUES: Unremarkable UPPER ABDOMEN: The visualized portions of the liver, spleen, and adrenals have an unremarkable unenhanced appearance. CT/CT chest wo IV con IMPRESSION: Severe emphysema. Biapical pleural and parenchymal scarring. Upper lobe nodules, unchanged from 10/10/2025. Continued follow-up is recommended. Electronically signed by: Hiram Peña MD 10/17/2025 02:37 PM EST
--- OUTSIDE RECORDS SUMMARY | 2025-10-17 15:07 | XMS_ITS | Clinical Summary ---
Author Organization [employer] Address [address] [facility] [address] [place] [address] Care Team Providers Care Extruder Operator Multiple Name Role Phone Unavailable Primary Care Provider [...]
--- OUTSIDE RECORDS SUMMARY | 2025-10-17 15:07 | XMS_ITS | Encounter Summary ---
Author Organization [facility] Address [address] [place] [address] Care Team Providers Care International Exchange Coordinator Name Role Phone Julissa Lal MD Primary Care Provider Encounter Details Date Type Department Care Team (Late st Contact Info) Description 10/16/2025 Lab Requisition [facility] - Main Lab 299 [facility] [place] [address] Jimmy Charles PA [address] [facility] [address] [place] [address] Encounter for other general examination Social History [...] as of this encounter Plan of Treatment Pending Results Name Type Priority Associated Diagnoses Date /Time Culture urine Microbiology Routine Encounter for other general examination 10/16/2025 8:15 PM EST documented as of this encounter Procedures Procedure Name Priority Date/Time Associated Diagnosis Comments URINALYSIS WITH REFLEX MICROSCOPIC AND CULTURE Routine 10/16/2025 8:15 PM EST Encounter for other general examination THOMAS URINE CULTURE TUBE Routine 10/16/2025 8:15 PM EST Encounter for other general examination URINALYSIS WITH REFLEX MICROSCOPIC AND CULTURE Routine 10/16/2025 8:15 PM EST Encounter for other general examination documented in this encounter Results * Thomas urine culture tube (10/16/2025 8:15 PM EST) Extra Tube Hold for add-ons. 10/17/2025 11:01 AM [facility] LAB Comment:Auto resulted. Urine Urine specimen obtained by clean catch procedure / Unknown Non-blood Collection / Unknown 10/16/2025 8:15 PM EST 10/17/2025 9:08 AM EST us Jimmy MOORE LAB URINE ORDERABLES Final R esult [facility] LAB [address] [place] [address], [place] [phone] * (ABNORMAL) Urinalysis with reflex microscopic and culture (10/16/2025 8:15 PM EST) Pathologist [facility] Specific [place] Urine 1.016 1.003 - 1.030 LAB URINALYSIS - AUTOMATED METHOD 10/17/2025 10:21 AM [facility] LAB pH, Urine 7.0 5.0 - 8.0 pH LAB URINALYSIS - AUTOMATED METHOD 10/17/2025 10:21 AM [facility] LAB Leukocytes, Urine Moderate(A) Negative LAB URINALYSIS - AUTOMATED METHOD 10/17/2025 10:21 AM [facility] LAB Nitrite, Urine Negative Negative LAB URINALYSIS - AUTOMATED METHOD 10/17/2025 10:21 AM [facility] Protein, Urine Negative <=Trace mg/dL LAB URINALYSIS - AUTOMATED METHOD 10/17/2025 10:21 AM [facility] LAB Glucose, Urine Negative Negative mg/dL LAB URINALYSIS - AUTOMATED METHOD 10/17/2025 10:21 AM [facility] LAB Ketones, Urine Negative Negative mg/dL LAB URINALYSIS - AUTOMATED METHOD 10/17/2025 10:21 AM [facility] LAB Urobilinogen , Urine 1.0 0.2 - 1.0 mg/dL LAB URINALYSIS - AUTOMATED METHOD 10/17/2025 10:21 AM [facility] LAB Bilirubin, Urine Negative Negative LAB URINALYSIS - AUTOMATED METHOD 10/17/2025 10:21 AM [facility] LAB Blood, Urine Negative Negative LAB URINALYSIS - AUTOMATED METHOD 10/17/2025 10:21 AM [facility] LAB RBC, Urine 10(H) 0 - 4 /HPF 10/17/2025 10:21 AM [facility] LAB WBC, Urine 40(H) 0 - 4 /HPF 10/17/2025 10:21 AM [facility] Squamous Epithelial, Urine 80(H) 0 - 60 /LPF 10/17/2025 10:21 AM [facility] Bacteria, Urine Few(A) Negative /HPF 10/17/2025 10:21 AM [facility] Urine Urine specimen obtained by clean catch procedure / Unknown Non-blood Collection / Unknown 10/16/2025 8:15 PM EST 10/17/2025 9:08 AM EST Jimmy MOORE LAB URINE ORDERABLES Final R esult [facility] LAB [address] [place] [address], documented in this encounter Visit Diagnoses Diagnosis Encounter for other general examination documented in this encounter Care Teams International Exchange Coordinator Relationship Specialty Start Date End Date Julissa Lal MD [address] [place], [place] PCP - General Pulmonology 08/16/19 documented as of this encounter
--- OUTSIDE RECORDS SUMMARY | 2025-10-17 15:07 | XMS_ITS | Encounter Summary ---
Author Organization [facility] Address [address] [place] [address] Care Team Providers Care Photographic Machine Operator Name Role Phone Julissa Lal MD Primary Care Provider Encounter Details Date Type Department Care Team (Late st Contact Info) Description 10/13/2025 Lab Requisition [facility] - Main Lab 299 [facility] [employer] [place] [phone] Risa Nazario PA [address] [place] [address] Encounter for other general examination Social History [...] AM EST) WBC 10.2 4.8 - 10.8 K/[facility] LAB HEMETOLOGY METHOD 10/13/2025 11:38 AM [facility] LAB RBC 4.40 3.80 - 4.80 M/mcL LAB HEMETOLOGY METHOD 10/13/2025 11:38 AM [facility] LAB Hemoglobin 13.7 11.5 - 16.0 g/dL LAB HEMETOLOGY METHOD 10/13/2025 11:38 AM [facility] LAB Hematocrit 42.2 35.0 - 47.0 % LAB HEMETOLOGY METHOD 10/13/2025 11:38 AM [facility] LAB MCV 95.3 79.0 - 98.0 FL LAB HEMETOLOGY METHOD 10/13/2025 11:38 AM [facility] LAB MCH 30.9 27.0 - 32.0 pcg LAB HEMETOLOGY METHOD 10/13/2025 11:38 AM [facility] LAB MCHC 32.5 32.0 - 37.0 g/dL LAB HEMETOLOGY METHOD 10/13/2025 11:38 AM [facility] LAB RDW 12.4 11.0 - 15.0 % LAB HEMETOLOGY METHOD 10/13/2025 11:38 AM [facility] LAB Platelets 493(H) 130 - 400 K/mcL LAB HEMETOLOGY METHOD 10/13/2025 11:38 AM [facility] LAB MPV 9.3 7.0 - 11.0 FL LAB HEMETOLOGY METHOD 10/13/2025 11:38 AM [facility] LAB NRBC 0.0 <1.0 % LAB HEMETOLOGY METHOD 10/13/2025 11:38 AM [facility] LAB NRBC Absolute 0.00 <0.10 K/mcL LAB HEMETOLOGY METHOD 10/13/2025 11:38 AM [facility] LAB Neutrophils Relative 71.6 % LAB HEMETOLOGY METHOD 10/13/2025 11:38 AM [facility] LAB Lymphocytes Relative 14.0 % LAB HEMETOLOGY METHOD 10/13/2025 11:38 AM [facility] LAB Monocytes Relative 9.7 % LAB HEMETOLOGY METHOD 10/13/2025 11:38 AM [facility] LAB Eosinophils Relative 3.1 % LAB HEMETOLOGY METHOD 10/13/2025 11:38 AM [facility] LAB Basophils Relative 0.9 % LAB HEMETOLOGY METHOD 10/13/2025 11:38 AM [facility] LAB Immature Granulocytes Relative 0.7 % LAB HEMETOLOGY METHOD 10/13/2025 11:38 AM [facility] LAB Neutrophils Absolute 7.28(H) 1.50 - 7.00 K/mcL LAB HEMETOLOGY METHOD 10/13/2025 11:38 AM [facility] LAB Lymphocytes Absolute 1.42 1.00 - 5.00 K/mcL LAB HEMETOLOGY METHOD 10/13/2025 11:38 AM [facility] LAB Monocytes Absolute 0.99 0.20 - 1.00 K/mcL LAB HEMETOLOGY METHOD 10/13/2025 11:38 AM [facility] LAB Eosinophils Absolute 0.31 0.00 - 0.50 K/mcL LAB HEMETOLOGY METHOD 10/13/2025 11:38 AM [facility] LAB Basophils Absolute 0.09 0.00 - 0.20 K/mcL LAB HEMETOLOGY METHOD 10/13/2025 11:38 AM [facility] LAB Immature Granulocytes Absolute 0.07(H) 0.00 - 0.03 K/mcL LAB HEMETOLOGY METHOD 10/13/2025 11:38 AM [facility] LAB Blood Venous blood specimen / Unknown Venipuncture / Unknown 10/13/2025 6:34 AM EST 10/13/2025 10:42 AM EST us [facility] BLOOD ORDERABLES Final Resu lt Performing Organization Address [facility]/ZIP Co de Phone Number [facility] LAB [address] [place] [address], [place] [phone] * Magnesium (10/13/2025 6:34 AM EST) Magnesium 2.2 1.9 - 2.6 mg/dL 10/13/2025 12:39 PM EST [facility] LAB Blood Venous blood specimen / Unknown Venipuncture / Unknown 10/13/2025 6:34 AM EST 10/13/2025 10:42 AM EST [facility] BLOOD ORDERABLES Final Resu lt Performing Organization Address [facility] Co de Phone Number [facility] LAB [address] [place] [address], [place] [phone] documented in this encounter Visit Diagnoses Diagnosis Encounter for other general examination documented in this encounter Care Teams Photographic Machine Operator Relationship Specialty Start Date End Date Julissa Lal MD [address] [place], [place] PCP - General Pulmonology 08/16/19 documented as of this encounter
--- OUTSIDE RECORDS SUMMARY | 2025-10-17 15:07 | XMS_ITS | Encounter Summary ---
Author Organization [facility] Address [address] [place] [address] Care Team Providers Care Emergency Veterinary Assistant Name Role Phone Julissa Lal MD Primary Care Provider Encounter Details Date Type Department Care Team (Late st Contact Info) Description 10/16/2025 Lab Requisition [facility] - Main Lab [address] [facility] [place] [address] Jimmy Charles PA [address] [facility] [address] [place] [address] Encounter for other general examination [...] Procedure Name Priority Date/Time Associated Diagnosis Comments COMPLETE BLOOD COUNT Routine 10/16/2025 7:29 AM EST Encounter for other general examination COMPREHENSIVE METABOLIC PANEL Routine 10/16/2025 7:29 AM EST Encounter for other general examination documented in this encounter Results * (ABNORMAL) Complete blood count (10/16/2025 7:29 AM EST) WBC 12.1(H) 4.8 - 10.8 /[facility] LAB HEMETOLOGY METHOD 10/16/2025 11:10 AM EST [facility] RBC 4.50 3.80 - 4.80 M/mcL LAB HEMETOLOGY METHOD 10/16/2025 11:10 AM [facility] Hemoglobin 13.5 11.5 - 16.0 g/dL LAB HEMETOLOGY METHOD 10/16/2025 11:10 AM [facility] LAB Hematocrit 43.0 35.0 - 47.0 % LAB HEMETOLOGY METHOD 10/16/2025 11:10 AM [facility] LAB MCV 95.1 79.0 - 98.0 FL LAB HEMETOLOGY METHOD 10/16/2025 11:10 AM [facility] LAB MCH 29.9 27.0 - 32.0 pcg LAB HEMETOLOGY METHOD 10/16/2025 11:10 AM [facility] LAB MCHC 31.4(L) 32.0 - 37.0 g/dL LAB HEMETOLOGY METHOD 10/16/2025 11:10 AM [facility] RDW 12.3 11.0 - 15.0 % LAB HEMETOLOGY METHOD 10/16/2025 11:10 AM [facility] LAB Platelets 510(H) 130 - 400 K/mcL LAB HEMETOLOGY METHOD 10/16/2025 11:10 AM [facility] LAB MPV 9.1 7.0 - 11.0 FL LAB HEMETOLOGY METHOD 10/16/2025 11:10 AM [facility] LAB NRBC 0.0 <1.0 % LAB HEMETOLOGY METHOD 10/16/2025 11:10 AM [facility] LAB NRBC Absolute 0.00 <0.10 K/mcL LAB HEMETOLOGY METHOD 10/16/2025 11:10 AM [facility] LAB Blood Venous blood specimen / Unknown Venipuncture / Unknown 10/16/2025 7:29 AM EST 10/16/2025 10:24 AM EST us Jimmy MOORE LAB BLOOD ORDERABLES Final R esult [facility] [address] [place] [address], * (ABNORMAL) Comprehensive metabolic panel (10/16/2025 7:29 AM EST) Sodium 140 133 - 145 mmol/L 10/16/2025 11:50 AM [facility] Potassium 4.4 3.5 - 5.5 mmol/L 10/16/2025 11:50 AM [facility] Chloride 99 96 - 110 mmol/L 10/16/2025 11:50 AM [facility] CO2 29 21 - 32 mmol/L 10/16/2025 11:50 AM [facility] Anion Gap 12(H) 3 - 11 10/16/2025 11:50 AM [facility] Glucose 87 70 - 100 mg/dL 10/16/2025 11:50 AM [facility] BUN 13 5 - 25 mg/dL 10/16/2025 11:50 AM [facility] Creatinine 0.62 0.50 - 1.10 mg/dL 10/16/2025 11:50 AM [facility] LAB eGFR 91 >=60 mL/min/1. 73m2 10/16/2025 11:50 AM [facility] Comment:Calculation based on the Chronic Kidney Disease Epidemiology Collaboration (CKD-EPI) equation refit without adjustment for race. BUN/Creatinine Ratio 21.0 10/16/2025 11:50 AM [facility] Calcium 8.9 8.5 - 10.5 mg/dL 10/16/2025 11:50 AM [facility] AST (SGOT) 36 10 - 42 unit/L 10/16/2025 11:50 AM [facility] ALT (SGPT) 53 10 - 60 unit/L 10/16/2025 11:50 AM [facility] Alkaline Phosphatase 226(H) 42 - 121 unit/L 10/16/2025 11:50 AM [facility] Total Protein 6.7 6.0 - 8.0 g/dL 10/16/2025 11:50 AM [facility] Albumin 3.6 3.2 - 5.0 g/dL 10/16/2025 11:50 AM [facility] Total Bilirubin 0.4 0.0 - 1.4 mg/dL 10/16/2025 11:50 AM [facility] Blood Venous blood specimen / Unknown Venipuncture / Unknown 10/16/2025 7:29 AM EST 10/16/2025 10:24 AM EST us Jimmy MOORE LAB BLOOD ORDERABLES Final R esult [facility] [address] [place] [address], documented in this encounter Visit Diagnoses Diagnosis Encounter for other general examination documented in this encounter Care Teams Emergency Veterinary Assistant Relationship Specialty Start Date End Date Julissa Lal MD [address] [place], [place] PCP - General Pulmonology 08/16/19 documented as of this encounter
--- OUTSIDE RECORDS SUMMARY | 2025-10-17 15:07 | XMS_ITS | Clinical Summary ---
Author Organization [address] [facility] Address [address] [place] [address] Phone Care Team Providers Care Inflated Ball Molder Name Role Phone Julissa Lal MD Primary Care Provider Encounters Date Type Department Care Team Description 10/16/2025 Lab Requisition [facility] [address] [place] [address] Jimmy Charles PA Encounter for other general examination 10/16/2025 Lab Requisition [facility] [address] [place] [address] Jimmy Charles PA Encounter for other general examination 10/16/2025 Lab Requisition [facility] [address] [place] [address] Jimmy Charles PA Encounter for other general examination 10/13/2025 Lab Requisition [facility] [address] [place] [address] Risa Nazario PA Encounter for other general [...] season) 2025 08/31/2023 Influenza Vaccine (#1) 2025 3, 07/23/2018, 08/22/2012 HIB Vaccines Aged Out No [...] Procedure Name Priority Date/Time Associated Diagnosis Comments THOMAS URINE CULTURE TUBE Routine 10/16/2025 8:15 PM EST Encounter for other general examination URINALYSIS WITH REFLEX MICROSCOPIC AND CULTURE Routine 10/16/2025 8:15 PM EST Encounter for other general examination URINALYSIS WITH REFLEX MICROSCOPIC AND CULTURE Routine 10/16/2025 8:15 PM EST Encounter for other general examination COMPREHENSIVE METABOLIC PANEL Routine 10/16/2025 12:07 PM EST Encounter for other general examination COMPLETE BLOOD COUNT Routine 10/16/2025 7:29 AM EST Encounter for other general examination COMPREHENSIVE METABOLIC PANEL Routine 10/16/2025 7:29 AM EST Encounter for other general examination CBC WITH AUTO DIFFERENTIAL Routine 10/13/2025 6:34 AM EST Encounter for other general examination MAGNESIUM Routine 10/13/2025 6:34 AM EST Encounter for other general examination CBC AND DIFFERENTIAL Routine 10/13/2025 6:34 AM EST Encounter for other general examination from Last 3 Months Results * (ABNORMAL) Urinalysis with reflex microscopic and culture (10/16/2025 8:15 PM EST) Specific [place] Urine 1.016 1.003 - 1.030 LAB URINALYSIS - AUTOMATED METHOD 10/17/2025 10:[address] [facility] pH, Urine 7.0 5.0 - 8.0 pH LAB URINALYSIS - AUTOMATED METHOD 10/17/2025 10:[address] [facility] Leukocytes, Urine Moderate(A) Negative LAB URINALYSIS - AUTOMATED METHOD 10/17/2025 10:[address] [facility] Nitrite, Urine Negative Negative LAB URINALYSIS - AUTOMATED METHOD 10/17/2025 10:[address] [facility] Protein, Urine Negative <=Trace mg/dL LAB URINALYSIS - AUTOMATED METHOD 10/17/2025 10:[address] [facility] Glucose, Urine Negative Negative mg/dL LAB URINALYSIS - AUTOMATED METHOD 10/17/2025 10:[address] [facility] Ketones, Urine Negative Negative mg/dL LAB URINALYSIS - AUTOMATED METHOD 10/17/2025 10:[address] [facility] Urobilinogen , Urine 1.0 0.2 - 1.0 mg/dL LAB URINALYSIS - AUTOMATED METHOD 10/17/2025 10:[address] [facility] Bilirubin, Urine Negative Negative LAB URINALYSIS - AUTOMATED METHOD 10/17/2025 10:[address] [facility] Blood, Urine Negative Negative LAB URINALYSIS - AUTOMATED METHOD 10/17/2025 10:[address] [facility] RBC, Urine 10(H) 0 - 4 /HPF 10/17/2025 10:[address] [facility] WBC, Urine 40(H) 0 - 4 /HPF 10/17/2025 10:[address] [facility] Squamous Epithelial, Urine 80(H) 0 - 60 /LPF 10/17/2025 10:[address] [facility] Bacteria, Urine Few(A) Negative /HPF 10/17/2025 10:[address] [facility] Urine Urine specimen obtained by clean catch procedure / Unknown Non-blood Collection / Unknown 10/16/2025 8:15 PM EST 10/17/2025 9:08 AM EST Jimmy MOORE LAB URINE ORDERABLES Final R esult Performing Organization Address City/[facility]/ZIP Co de Phone Number [facility] [address] [place] [address], [place] [phone] * Thomas urine culture tube (10/16/2025 8:15 PM EST) Extra Tube Hold for add-ons. 10/17/2025 11:[address] [facility] Comment:Auto resulted. Urine Urine specimen obtained by clean catch procedure / Unknown Non-blood Collection / Unknown 10/16/2025 8:15 PM EST 10/17/2025 9:08 AM EST Jimmy MOORE LAB URINE ORDERABLES Final R esult [facility] [address] [place] [address], * (ABNORMAL) Comprehensive metabolic panel (10/16/2025 12:07 PM EST) Only the most recent of2 resultswithin the time period is included. Sodium 136 133 - 145 mmol/L 10/16/2025 2:[address] [facility] Potassium 4.3 3.5 - 5.5 mmol/L 10/16/2025 2:[address] [facility] Chloride 96 96 - 110 mmol/L 10/16/2025 2:[address] [facility] CO2 32 21 - 32 mmol/L 10/16/2025 2:[address] [facility] Anion Gap 8 3 - 11 10/16/2025 2:[address] [facility] Glucose 133(H) 70 - 100 mg/dL 10/16/2025 2:[address] [facility] BUN 13 5 - 25 mg/dL 10/16/2025 2:[address] [facility] Creatinine 0.69 0.50 - 1.10 mg/dL 10/16/2025 2:[address] [facility] eGFR 88 >=60 mL/min/1. 73m2 10/16/2025 2:[address] [facility] Comment:Calculation based on the Chronic Kidney Disease Epidemiology Collaboration (CKD-EPI) equation refit without adjustment for race. BUN/Creatinine Ratio 18.8 10/16/2025 2:[address] [facility] Calcium 9.2 8.5 - 10.5 mg/dL 10/16/2025 2:[address] [facility] AST (SGOT) 31 10 - 42 unit/L 10/16/2025 2:[address] [facility] ALT (SGPT) 50 10 - 60 unit/L 10/16/2025 2:[address] [facility] Alkaline Phosphatase 228(H) 42 - 121 unit/L 10/16/2025 2:[address] [facility] Total Protein 6.3 6.0 - 8.0 g/dL 10/16/2025 2:[address] [facility] Albumin 3.6 3.2 - 5.0 g/dL 10/16/2025 2:[address] [facility] Total Bilirubin 0.4 0.0 - 1.4 mg/dL 10/16/2025 2:[address] [facility] Blood Venous blood specimen / Unknown Venipuncture / Unknown 10/16/2025 12:07 PM EST 10/16/2025 1:05 PM EST us Jimmy MOORE LAB BLOOD ORDERABLES Final R esult [facility] [address] [place] [address], * (ABNORMAL) Complete blood count (10/16/2025 7:29 AM EST) WBC 12.1(H) 4.8 - 10.8 K/mcL LAB HEMETOLOGY METHOD 10/16/2025 11:[address] [facility] RBC 4.50 3.80 - 4.80 M/mcL LAB HEMETOLOGY METHOD 10/16/2025 11:[address] [facility] Hemoglobin 13.5 11.5 - 16.0 g/dL LAB HEMETOLOGY METHOD 10/16/2025 11:[address] [facility] Hematocrit 43.0 35.0 - 47.0 % LAB HEMETOLOGY METHOD 10/16/2025 11:[address] [facility] MCV 95.1 79.0 - 98.0 FL LAB HEMETOLOGY METHOD 10/16/2025 11:[address] [facility] MCH 29.9 27.0 - 32.0 pcg LAB HEMETOLOGY METHOD 10/16/2025 11:[address] [facility] MCHC 31.4(L) 32.0 - 37.0 g/dL LAB HEMETOLOGY METHOD 10/16/2025 11:[address] [facility] RDW 12.3 11.0 - 15.0 % LAB HEMETOLOGY METHOD 10/16/2025 11:[address] [facility] Platelets 510(H) 130 - 400 K/mcL LAB HEMETOLOGY METHOD 10/16/2025 11:[address] [facility] MPV 9.1 7.0 - 11.0 FL LAB HEMETOLOGY METHOD 10/16/2025 11:[address] [facility] NRBC 0.0 <1.0 % LAB HEMETOLOGY METHOD 10/16/2025 11:[address] [facility] NRBC Absolute 0.00 <0.10 K/mcL LAB HEMETOLOGY METHOD 10/16/2025 11:[address] [facility] Blood Venous blood specimen / Unknown Venipuncture / Unknown 10/16/2025 7:29 AM EST 10/16/2025 10:24 AM EST us Jimmy MOORE LAB BLOOD ORDERABLES Final R esult [facility] [address] [place] [address], * (ABNORMAL) CBC auto differential (10/13/2025 6:34 AM EST) WBC 10.2 4.8 - 10.8 K/mcL LAB HEMETOLOGY METHOD 10/13/2025 11:[address] [facility] RBC 4.40 3.80 - 4.80 M/mcL LAB HEMETOLOGY METHOD 10/13/2025 11:[address] [facility] Hemoglobin 13.7 11.5 - 16.0 g/dL LAB HEMETOLOGY METHOD 10/13/2025 11:[address] [facility] Hematocrit 42.2 35.0 - 47.0 % LAB HEMETOLOGY METHOD 10/13/2025 11:[address] [facility] MCV 95.3 79.0 - 98.0 FL LAB HEMETOLOGY METHOD 10/13/2025 11:[address] [facility] MCH 30.9 27.0 - 32.0 pcg LAB HEMETOLOGY METHOD 10/13/2025 11:[address] [facility] MCHC 32.5 32.0 - 37.0 g/dL LAB HEMETOLOGY METHOD 10/13/2025 11:[address] [facility] RDW 12.4 11.0 - 15.0 % LAB HEMETOLOGY METHOD 10/13/2025 11:[address] [facility] Platelets 493(H) 130 - 400 K/mcL LAB HEMETOLOGY METHOD 10/13/2025 11:[address] [facility] MPV 9.3 7.0 - 11.0 FL LAB HEMETOLOGY METHOD 10/13/2025 11:[address] [facility] NRBC 0.0 <1.0 % LAB HEMETOLOGY METHOD 10/13/2025 11:[address] [facility] NRBC Absolute 0.00 <0.10 K/mcL LAB HEMETOLOGY METHOD 10/13/2025 11:[address] [facility] Neutrophils Relative 71.6 % LAB HEMETOLOGY METHOD 10/13/2025 11:[address] [facility] Lymphocytes Relative 14.0 % LAB HEMETOLOGY METHOD 10/13/2025 11:[address] [facility] Monocytes Relative 9.7 % LAB HEMETOLOGY METHOD 10/13/2025 11:[address] [facility] Eosinophils Relative 3.1 % LAB HEMETOLOGY METHOD 10/13/2025 11:[address] [facility] Basophils Relative 0.9 % LAB HEMETOLOGY METHOD 10/13/2025 11:[address] [facility] Immature Granulocytes Relative 0.7 % LAB HEMETOLOGY METHOD 10/13/2025 11:[address] [facility] Neutrophils Absolute 7.28(H) 1.50 - 7.00 K/mcL LAB HEMETOLOGY METHOD 10/13/2025 11:[address] [facility] Lymphocytes Absolute 1.42 1.00 - 5.00 K/mcL LAB HEMETOLOGY METHOD 10/13/2025 11:[address] [facility] Monocytes Absolute 0.99 0.20 - 1.00 K/mcL LAB HEMETOLOGY METHOD 10/13/2025 11:[address] [facility] Eosinophils Absolute 0.31 0.00 - 0.50 K/mcL LAB HEMETOLOGY METHOD 10/13/2025 11:[address] [facility] Basophils Absolute 0.09 0.00 - 0.20 K/mcL LAB HEMETOLOGY METHOD 10/13/2025 11:[address] [facility] Immature Granulocytes Absolute 0.07(H) 0.00 - 0.03 K/mcL LAB HEMETOLOGY METHOD 10/13/2025 11:[address] [facility] Blood Venous blood specimen / Unknown Venipuncture / Unknown 10/13/2025 6:34 AM EST 10/13/2025 10:42 AM EST us Risa MOORE LAB BLOOD ORDERABLES Final Resu lt [facility] [address] [place] [address], [place] [phone] * Magnesium (10/13/2025 6:34 AM EST) Magnesium 2.2 1.9 - 2.6 mg/dL 10/13/2025 12:[address] [facility] Blood Venous blood specimen / Unknown Venipuncture / Unknown 10/13/2025 6:34 AM EST 10/13/2025 10:42 AM EST Risa MOORE LAB BLOOD ORDERABLES Final Resu lt [facility] [address] [place] [address], [place] [phone] from Last 3 Months Insurance MEDICARE [employer] Care Teams Inflated Ball Molder Relationship Specialty Start Date End Date Julissa Lal MD [address] [place] [address] PCP - General Pulmonology 08/16/19
--- OUTSIDE RECORDS SUMMARY | 2025-10-17 15:07 | XMS_ITS | Encounter Summary ---
Author Organization [facility] Address [address] [place] [address] Care Team Providers Care Local [employer] Truck Driver Name Role Phone Julissa Lal MD Primary Care Provider Encounter Details Date Type Department Care Team (Late st Contact Info) Description 10/16/2025 Lab Requisition [facility] [address] [facility] [place] [address] Jimmy Charles PA [address] [facility] [address] [place] [address] Encounter for other general examination [...] Procedure Name Priority Date/Time Associated Diagnosis Comments COMPREHENSIVE METABOLIC PANEL Routine 10/16/2025 12:07 PM EST Encounter for other general examination documented in this encounter Results * (ABNORMAL) Comprehensive metabolic panel (10/16/2025 12:07 PM EST) Sodium 136 133 - 145 mmol/L 10/16/2025 2:[address] [facility] Potassium 4.3 3.5 - 5.5 mmol/L 10/16/2025 2:[address] [facility] Chloride 96 96 - 110 mmol/L 10/16/2025 2:02 PM [facility] CO2 32 21 - 32 mmol/L 10/16/2025 2:02 PM [facility] Anion Gap 8 3 - 11 10/16/2025 2:02 PM [facility] Glucose 133(H) 70 - 100 mg/dL 10/16/2025 2:02 PM [facility] BUN 13 5 - 25 mg/dL 10/16/2025 2:02 PM [facility] Creatinine 0.69 0.50 - 1.10 mg/dL 10/16/2025 2:02 PM [facility] eGFR 88 >=60 mL/min/1. 73m2 10/16/2025 2:02 PM [facility] Comment:Calculation based on the Chronic Kidney Disease Epidemiology Collaboration (CKD-EPI) equation refit without adjustment for race. BUN/Creatinine Ratio 18.8 10/16/2025 2:02 PM [facility] Calcium 9.2 8.5 - 10.5 mg/dL 10/16/2025 2:02 PM [facility] AST (SGOT) 31 10 - 42 unit/L 10/16/2025 2:02 PM [facility] ALT (SGPT) 50 10 - 60 unit/L 10/16/2025 2:02 PM [facility] Alkaline Phosphatase 228(H) 42 - 121 unit/L 10/16/2025 2:02 PM [facility] Total Protein 6.3 6.0 - 8.0 g/dL 10/16/2025 2:02 PM [facility] Albumin 3.6 3.2 - 5.0 g/dL 10/16/2025 2:02 PM [facility] Total Bilirubin 0.4 0.0 - 1.4 mg/dL 10/16/2025 2:[address] [facility] Blood Venous blood specimen / Unknown Venipuncture / Unknown 10/16/2025 12:07 PM EST 10/16/2025 1:05 PM EST us Jimmy MOORE LAB BLOOD ORDERABLES Final R esult [facility] [address] [place] [address], documented in this encounter Visit Diagnoses Diagnosis Encounter for other general examination documented in this encounter Care Teams Local Az Truck Driver Relationship Specialty Start Date End Date Julissa Lal MD [address] [place], [place] PCP - General Pulmonology 08/16/19 documented as of this encounter
== END 2025-10-17 13:21 | disposition home or self-care (01) ==
LOC: HO.CT 13:20
PROVIDERS: PCP Internal Medicine; Visit Provider Nurse Practitioner Family
DX: R91.1 Solitary pulmonary nodule (principal)
CPT/HCPCS: 71250

== ENCOUNTER → 2025-10-17 13:22 | Outpatient (BNV) | payer MEDICARE, OTHER, SELFPAY | PROVIDERS: PCP Internal Medicine; Visit Provider Radiology Diagnostic Radiology | DX: J43.9 Emphysema, unspecified (principal) | CPT/HCPCS: 71250 ==